=== PATIENT | female | born 1935 | race Caucasian/White ===

== ENCOUNTER 2016-12-23 12:32 | Inpatient (IN) | payer MEDICARE, BC ==
[~2016-12-23] VITALS: Ht 142.2 cm; Wt 39.0 kg
--- NOTE | 2016-12-23 12:42 | Emergency Room Report ---
History of Present Illness General Chief Complaint: Dyspnea/Respdistress Source: Patient, EMS Present Illness HPI 81 YOF former smoker with known COPD with 10 days productive cough, rhinorrhea, myalgias, headaches. Completed 7 days of doxy and [address] Kidd. PMD requesting eval/admission at [facility]. I called Dr Kidd's office, he does not have admission priveleges here. Patient endorsing rhinorrhea, productive cough, wheezing. Given albuterol by EMS en route. Denies chest pain, Abd pain, headache, urinary complaints. Allergies: Coded Allergies: No Known Allergies (Unverified , 12/23/16) Patient History Past Medical History: other - COPD, breast cancer, hypotyroidusm Past Surgical History: none Pertinent Family History: none Social History: Reports: smoking Now: No Immunizations: UTD Reviewed Nursing Documentation: PMH: Agreed, PSxH: Agreed Nursing Documentation-PMH Hx COPD: Yes Hx Diabetes: No - Neuropathy Hx Cancer: Yes - Breast Review of Systems All Other Systems: negative except mentioned in HPI Physical Exam Vital Signs Date Time Temp Pulse Resp B/P Pulse Ox O2 Delivery O2 Flow Rate FiO2 12/23/16 12:25 98.2 120 24 150/84 94 Venturi Mask [id number] EP Interpretation: reviewed, abnormal General Appearance: normal inspection, well appearing, alert, GCS 15, non-toxic , mild distress, cachetic Head: normocephalic, atraumatic Eyes: bilateral eye EOMI, bilateral eye PERRL ENT: normal ENT inspection, hearing grossly normal, normal voice Neck: normal inspection, full range of motion, supple, no bony tend Respiratory: normal inspection, respiratory distress, accessory muscle use, speaking full sentences, wheezing Cardiovascular #1: regular rate, rhythm, no edema Gastrointestinal: normal inspection, normal bowel sounds, non tender, soft, no guarding, no hernia Genitourinary: no CVA tenderness Musculoskeletal: normal inspection, back normal, normal range of motion, Oj' s Sign negative Neurologic: normal inspection, alert, oriented x3, responsive, raw mill operator III-XII nml as tested, motor strength/tone normal, speech normal Psychiatric: normal inspection, judgement/insight normal, mood/affect normal Skin: normal inspection, normal color, no rash Lymphatic: normal inspection Medical Decision Making Medicare Attestation I Petra Dukes MD hereby attest that the medical record entry for date of service, 09/21/16 accurately reflects signatures/notations that I made in my capacity as MD when I treated/diagnosed the above listed Medicare beneficiary. I attest that this information is true, accurate and complete to the best of my knowledge. I understand that any falsification, omission, or concealment of material fact may subject me to administrative, civil, or criminal liability. This patient warrants hospital admission for extreme of age and has a condition that cannot be treated as outpatient Diagnostic Impression: Primary Impression: COPD exacerbation ER Course Labs: No leuks. H&H stable. Troponin 0. BNP elevated CXR: No obvious PNA or pulm congestion Empiric Azithro given along with Bipap, duonebs, steroids with improvement Patient later found to have low grade fever so Tylenol given, Blood Cx sent and Rocephin added Doubt acute CHF despite elevated BNP as patient does not have CHF history, lung sounds were reduced/wheezing, improved aeration with BIPAP, and patient was actually weaned from BIPAP prior to admission to floor Endorsed to Dr Liang for [facility] admission at 151pm EKG Diagnostic Results Rate: tachycardiac Rhythm: NSR ST Segments: no acute changes Rhythm Strip Diag. Results EP Interpretation: yes Rate: 112 Rhythm: no PVC's, no ectopy Chest X-Ray Diagnostic Results EP Interpretation: Yes Findings: no consolidation, no effusion, no pneumothorax, no acute cardiopulmonary disease Number of Views: 1 Last Vital Signs Date Time Temp Pulse Resp B/P Pulse Ox O2 Delivery O2 Flow Rate FiO2 12/23/16 12:25 98.2 120 24 150/84 94 Venturi Mask Status: unchanged Disposition: ADMITTED INPATIENT Condition: Serious PETRA DUKES M.D. Dec 23, 2016 12:42
[2016-12-23] MEDS ORDERED: Albuterol ud Inhalation HHN ONE (12:45)
[2016-12-23] MEDS ORDERED: Azithromycin 500 MG in NS 275 ML IV ONE (12:45)
[2016-12-23] MEDS ORDERED: Solu-MEDROL 125mg Inj IVP ONE (12:45)
[2016-12-23] MEDS: Ipratropium 0.02% Inh Soln 2.5ml UD HHN SCH ×3 (13:00→13:15)
[2016-12-23 13:15] VITALS: BP 129/82
[2016-12-23] MEDS ORDERED: Azithromycin Inj IV ONE (13:30)
--- NOTE | 2016-12-23 13:33 | Diagnostic Imaging Report ---
Indication: Dyspnea Comparison: None A single view chest radiograph was obtained. Findings: There are linear densities at the right lung base. Findings is older basal scarring or atelectasis. Heart is normal in size. Bones are osteopenic. Impression: Suspect is scarring versus atelectasis right lung base
[2016-12-23 13:46] VITALS: BP 135/87
[2016-12-23 13:54] LABS: BASOPHILS % (AUTO) 0.8 % (0.0-2.0); EOSINOPHILS % (AUTO) 0.2 % (0.0-3.0); LYMPHOCYTES % (AUTO) 14.5 % (20.0-45.0); MEAN CORPUSCULAR HEMOGLOBIN 31.8 PG (27.0-31.0); MEAN CORPUSCULAR HGB CONC 33.3 G/DL (32.0-36.0); MEAN CORPUSCULAR VOLUME 95 FL (80-99); MONOCYTES % (AUTO) 9.4 % (1.0-10.0); NEUTROPHILS % (AUTO) 75.1 % (45.0-75.0); PLATELET COUNT 341 K/UL (150-450); RED BLOOD COUNT 4.99 M/UL (4.20-5.40); RED CELL DISTRIBUTION WIDTH 12.4 % (11.6-14.8); WHITE BLOOD COUNT 10.3 K/UL (4.8-10.8)
[2016-12-23 13:59] LABS: ABG ALLEN TEST POSITIVE; ABG BASE EXCESS 0.7; ABG PCO2 32.5 mmHg (35.0-45.0)
[2016-12-23] MEDS ORDERED: cefTRIAXone 2 GM in NS 110 ML IVPB ONE (14:00)
[2016-12-23 14:49] LABS: TROPONIN I < 0.30 ng/mL (<=0.30)
[2016-12-23] MEDS ORDERED: Aspirin EC 81mg tab ORAL SCH (15:00)
[2016-12-23] MEDS ORDERED: DULoxetine 30mg cap ORAL ONE (15:00)
[2016-12-23] MEDS ORDERED: DuoNeb 0.5-3(2.5)mg/3ml neb HHN SCH (15:00)
[2016-12-23] MEDS ORDERED: Oxybutynin 5mg tab ORAL SCH (15:00)
[2016-12-23] MEDS ORDERED: Solu-MEDROL 125mg Inj IVP SCH (15:00)
[2016-12-23 15:01] LABS: ALANINE AMINOTRANSFERASE 12 U/L (3-33); ALBUMIN/GLOBULIN RATIO 0.9 (1.0-2.7); ANION GAP 18 (5-15); ASPARTATE AMINO TRANSFERASE 21 U/L (5-40); CARBON DIOXIDE 24 mEQ/L (20-30); CHLORIDE 81 mEQ/L (98-107); CREATININE 0.5 mg/dL (0.5-0.9); HEMOLYSIS 35; POTASSIUM 3.6 mEQ/L (3.4-4.9); SODIUM 123 mEQ/L (135-145); TOTAL PROTEIN 6.4 g/dL (6.6-8.7)
[2016-12-23 15:21] LABS: CKMB 8.8 ng/mL (< 3.8)
[2016-12-23 15:38] VITALS: BP 135/80
[2016-12-23] MEDS ORDERED: VIBRAMYCIN100 MG ORAL (16:12)
[2016-12-23] MEDS ORDERED: ADVAIR 250-501 EACH INH (16:12)
[2016-12-23] MEDS ORDERED: BENZONATATE200 MG ORAL (16:12)
[2016-12-23] MEDS ORDERED: SPIRIVA18 MCG INH (16:12)
[2016-12-23] MEDS ORDERED: GABAPENTIN400 MG ORAL (16:12)
[2016-12-23] MEDS ORDERED: GABAPENTIN600 MG ORAL (16:12)
[2016-12-23] MEDS ORDERED: OXYBUTYNIN CHLO10 MG PO (16:12)
[2016-12-23] MEDS ORDERED: GUAIFENESIN-CO118 M1 ORAL (16:12)
[2016-12-23] MEDS ORDERED: ASPIRIN81 MG ORAL (16:15)
[2016-12-23] MEDS ORDERED: PREDNISONE20 MG ORAL (16:15)
[2016-12-23] MEDS ORDERED: CELEBREX100 MG ORAL (16:15)
[2016-12-23] MEDS ORDERED: ALBUTEROL SULF8.5 GM INH (16:15)
[2016-12-23] MEDS ORDERED: RAPAFLO-PATIENT'1 EA PO (16:15)
[2016-12-23] MEDS ORDERED: LEVOTHYROXINE125 MCG ORAL (16:15)
[2016-12-23] MEDS ORDERED: [UNRECOGNIZED DRUG - OTHER] BOTH EYES (16:15)
[2016-12-23] MEDS ORDERED: CYMBALTA30 MG ORAL (16:15)
[2016-12-23 19:00] VITALS: BP 164/88
[2016-12-23] MEDS ORDERED: Levofloxacin 500mg tab ORAL ONE (19:00)
[2016-12-23] MEDS: DuoNeb 0.5-3(2.5)mg/3ml neb HHN SCH ×2 (19:09→22:48)
[2016-12-23] MEDS: Oxybutynin 5mg tab ORAL SCH (21:09)
[2016-12-23] MEDS: Heparin 5000 units/ml inj SUBQ SCH (21:10)
--- NOTE | 2016-12-23 21:28 | History and Physical Report ---
DATE OF ADMISSION: 12/23/2016 CHIEF COMPLAINT: COPD exacerbation. HISTORY OF PRESENT ILLNESS: The patient is an 81-year-old female. She has a history of COPD. She presented from home with complaints of a week of progressive shortness of breath. She has been followed by her outpatient prison teacher, who recently placed the patient on steroids. She has also been receiving oral antibiotic therapy, but has had progressive shortness of breath and wheezing. She has not been using her inhaler. She presented to the emergency room where she was initially in acute respiratory distress. She was placed on BiPAP and given a dose of intravenous Solu-Medrol and breathing treatments. She has since improved, but remains short of breath. She has just been taken off BiPAP. She has a low-grade fever. She denies any ill contacts. She has had no recent travel and she has had a mild productive cough. She denies any chest pain. PAST MEDICAL HISTORY: As above. PAST SURGICAL HISTORY: History of a breast biopsy. MEDICATIONS: Current medications reconciled and reviewed. ALLERGIES: None. SOCIAL HISTORY: The patient is a 45 pack-year history of smoking. Denies any alcohol or drugs. FAMILY HISTORY: None. REVIEW OF SYSTEMS: General: Positive fevers and chills, but no night sweats. HEENT: No headaches or visual changes. Cardiopulmonary: Positive shortness of breath, cough, and congestion. Positive wheezing. Gastrointestinal: No nausea or vomiting. Genitourinary: No urgency or frequency. Musculoskeletal: No joint pain or swelling. Neurologic: No evidence of seizures. PHYSICAL EXAMINATION: GENERAL: The patient is a well-developed thin female. She is awake, alert, and oriented x4. VITAL SIGNS: Temperature was 100.5 degrees, pulse 114, respirations 18, blood pressure 129/82 and the patient is saturating 95% on BiPAP. NECK: Supple. There is no jugular vein distention. HEART: Regular rate and rhythm. LUNGS: Significant for diminished breath sounds with scattered wheezes. ABDOMEN: Soft, nontender, and nondistended. EXTREMITIES: Without clubbing, cyanosis, or edema. LABORATORY AND DIAGNOSTIC DATA: The CMP is currently pending. The white count was 10, hemoglobin 15, hematocrit 47 and platelets 341,000. ABG showed a pH of 7.47, pCO2 32, pO2 137, bicarbonate 23, and O2 saturation 98%. Chest x-ray shows right basilar atelectasis. ASSESSMENT: This is a pleasant female with history of chronic obstructive pulmonary disease, admitted with chronic obstructive pulmonary disease exacerbation. 1. Chronic obstructive pulmonary disease exacerbation. 2. Pneumonia versus bronchitis. 3. Hypoxemia. 4. Respiratory failure. PLAN: Continue BiPAP as needed, respiratory treatments and IV steroids and broad-spectrum antibiotic therapy. Follow up cultures. DVT and stress ulcer prophylaxis. The patient to be continued on her outpatient medications. Code Status was discussed with the patient and she wishes to be a Full Code. Azar Liang M.D. DR: VIRIDIANA JOB#: [id number] CC:
[2016-12-23] MEDS: Solu-MEDROL 125mg Inj IVP SCH (23:16)
[2016-12-24] VITALS: BP 113/65
--- NOTE | 2016-12-24 02:18 | Consultation ---
DATE OF CONSULTATION: 12/23/2016 CONSULTING PHYSICIAN: Danilo Chau M.D. REFERRING PHYSICIAN: Azar Liang M.D. REASON FOR CONSULTATION: COPD and shortness of breath. HISTORY OF PRESENT ILLNESS: The patient is an 81-year-old female who is a former smoker. No history of COPD. The patient is seen and evaluated in the emergency room and noted to have COPD exacerbation. The patient currently had this treatment completed. Doxycycline and prednisone did not improve. The patient is under the care of Dr. Gomez. The patient does admit to some viral syndrome as well as cough and wheezing. She was given albuterol by the EMS. The patient had been admitted for the above. The patient has no improvement overall. Emergency room records revealed that chest x-ray showed no pneumonia. The patient was given antibiotics and IV steroids with some improvement overall. PAST MEDICAL HISTORY: The patient's past medical history is notable for COPD, breast cancer, and hypothyroidism. MEDICATIONS: Reviewed. ALLERGIES: Reviewed. SOCIAL HISTORY: The patient is apparent nonsmoker and nondrinker. The patient is retired, unemployed at present. FAMILY HISTORY: Otherwise negative. REVIEW OF SYSTEMS: Otherwise negative exception is above. PHYSICAL EXAMINATION: GENERAL: A well developed female, comfortable. VITAL SIGNS: Temperature 104, respiration 16, blood pressure 114/65, heart rate 73. HEENT: Fairly negative. NECK: Supple. LUNGS: Scattered wheezing. Moderate air entry. CARDIAC: S1 and S2. Regular, rate, and rhythm. No murmurs, rubs,or gallops. ABDOMEN: Soft and nontender. No distention. EXTREMITIES: No cyanosis or clubbing. No edema. NEUROLOGIC: Grossly nonfocal. Alert and oriented x3. LABORATORY DATA: Laboratory data reviewed in details. The patient's chest x-ray shows no pneumonia. EKG, normal sinus rhythm with the exception of telemetry showing sinus tachycardia. White cell count of 10, hematocrit 47, and platelets of 341,000. Chemistry - Sodium 123, BUN 70, and creatinine 0.5. BNP is 3556 and albumin 3.1. IMPRESSION: 1. COPD with acute exacerbation. 2. Shortness of breath. 3. Respiratory insufficiency. 4. Profound hyponatremia. 5. Depression. RECOMMENDATIONS: Admit IV Solu-Medrol, nebulizer therapy. Oxygen therapy. Subcutaneous heparin. Empiric antibiotics. Respiratory care. Followup care. recommend outpatient pulmonary function testing authorization. We will recommend combination of therapy with long acting anticholinergic agent as well as long acting bronchodilator, steroids, and inhaled steroids. Danilo Chau M.D. DR: YULIYA JOB#: [id number] CC: KASH
[2016-12-24] MEDS: DuoNeb 0.5-3(2.5)mg/3ml neb HHN SCH ×6 (03:18→23:08)
[2016-12-24 04:00] VITALS: BP 133/77
[2016-12-24] MEDS: Solu-MEDROL 125mg Inj IVP SCH ×3 (05:37→21:25)
[2016-12-24 08:00] VITALS: BP 125/69
[2016-12-24] MEDS: Oxybutynin 5mg tab ORAL SCH ×2 (08:47→17:12)
[2016-12-24] MEDS: DULoxetine 30mg cap ORAL SCH (08:47)
[2016-12-24] MEDS: Aspirin EC 81mg tab ORAL SCH (08:47)
[2016-12-24] MEDS: Heparin 5000 units/ml inj SUBQ SCH ×2 (08:51→21:27)
--- NOTE | 2016-12-24 08:52 | Pulmonology Progress Note ---
Assessment/Plan Assessment/Plan IMPRESSION: 1. COPD with acute exacerbation. 2. Shortness of breath. 3. Respiratory insufficiency. 4. Profound hyponatremia. 5. Depression. PLAN same rx continue same IV solumedrol respiratory care oxygen therapy assess home needs lives alone and very fragil impression, plan, and exam edited and reviewed in detail care discussed with RN Subjective Allergies: Coded Allergies: No Known Allergies (Unverified , 12/23/16) Subjective still congested and sob notes that she does have COPD not oxygen dependent Objective Last 24 Hour Vital Signs Date Time Temp Pulse Resp B/P Pulse Ox O2 Delivery O2 Flow Rate FiO2 12/24/16 07:28 95 18 98 Nasal Cannula 2.0 28 12/24/16 07:18 28 12/24/16 07:18 98 Nasal Cannula 2.0 28 12/24/16 07:18 Nasal Cannula 2.0 28 12/24/16 07:18 98 16 98 Nasal Cannula 2.0 28 12/24/16 04:00 84 12/24/16 04:00 97.4 84 20 133/77 100 Nasal Cannula 2.0 12/24/16 04:00 90 12/24/16 03:29 100 18 98 Nasal Cannula 2.0 28 12/24/16 03:19 28 12/24/16 03:18 98 16 97 Nasal Cannula 2.0 28 12/24/16 00:15 97.4 12/24/16 00:00 97.4 96 20 113/65 95 Nasal Cannula 2.0 12/24/16 00:00 99 12/23/16 22:59 98 18 99 Nasal Cannula 2.0 28 12/23/16 22:49 99 18 98 Nasal Cannula 2.0 28 12/23/16 22:49 28 12/23/16 20:00 104 12/23/16 19:21 98 20 99 Nasal Cannula 2.0 28 12/23/16 19:13 97 Nasal Cannula 2.0 28 12/23/16 19:13 Nasal Cannula 2.0 28 12/23/16 19:11 28 12/23/16 19:11 100 18 97 Nasal Cannula 2.0 28 12/23/16 19:00 96.8 100 20 164/88 96 Nasal Cannula 2.0 12/23/16 17:12 104 16 114/65 94 Nasal Cannula 3.0 12/23/16 16:27 97.9 12/23/16 15:38 98.4 106 18 135/80 98 4.0 12/23/16 14:20 15.0 30 12/23/16 13:46 100.5 104 19 135/87 99 40 12/23/16 13:30 40 12/23/16 13:20 102 20 100 Facial 15.0 40 12/23/16 13:15 114 18 129/82 100 Bi-pap 40 12/23/16 13:12 101 20 95 Bi-pap 15.0 40 12/23/16 13:02 105 18 87 Bi-pap 12/23/16 13:02 105 18 Bi-pap 15.0 40 12/23/16 13:02 40 12/23/16 12:40 122 20 Simple Mask 94 12/23/16 12:25 98.2 120 24 150/84 94 Venturi Mask Intake and Output 12/23/16 12/24/16 19:00 07:00 Intake Total 375 ml 120 ml Balance 375 ml 120 ml Intake Oral 100 ml 120 ml IV Total 275 ml # Voids 3 Objective GENERAL: A well developed female, comfortable. but persistently coughing HEENT: Fairly negative. NECK: Supple. LUNGS: Scattered wheezing and rhonchi diffuse. Moderate air entry. CARDIAC: S1 and S2. Regular, rate, and rhythm. No murmurs, rubs,or gallops. ABDOMEN: Soft and nontender. No distention. EXTREMITIES: No cyanosis or clubbing. No edema. NEUROLOGIC: Grossly nonfocal. Alert and oriented x3. Laboratory Tests 12/23/16 12:42: Arterial Blood pH 7.477H, Arterial Blood Partial Pressure CO2 32.5L, Arterial Blood Partial Pressure O2 137.1H, Arterial Blood HCO3 23.5, Arterial Blood Oxygen Saturation 98.7H, Arterial Blood Base Excess 0.7, Armando Test Positive 12/23/16 13:25: White Blood Count 10.3, Red Blood Count 4.99, Hemoglobin 15.9, Hematocrit 47.5H , Mean Corpuscular Volume 95, Mean Corpuscular Hemoglobin 31.8H, Mean Corpuscular Hemoglobin Concent 33.3, Red Cell Distribution Width 12.4, Platelet Count 341, Mean Platelet Volume 6.0L, Neutrophils (%) (Auto) 75.1H, Lymphocytes (%) (Auto) 14.5L, Monocytes (%) (Auto) 9.4, Eosinophils (%) (Auto) 0.2, Basophils (%) (Auto) 0.8 12/23/16 13:58: Sodium Level 123L, Potassium Level 3.6, Chloride Level 81L, Carbon Dioxide Level 24, Anion Gap 18H, Blood Urea Nitrogen 7, Creatinine 0.5, Estimat Glomerular Filtration Rate , Glucose Level 129H, Calcium Level 9.0, Total Bilirubin 0.3, Aspartate Amino Transf (AST/SGOT) 21, Alanine Aminotransferase ( ALT/SGPT) 12, Alkaline Phosphatase 82, Total Creatine Kinase 62, Creatine Kinase MB 8.8H, Creatine Kinase MB Relative Index 14.1, Troponin I < 0.30, Pro-B -Type Natriuretic Peptide 3556H, Total Protein 6.4L, Albumin 3.1L, Globulin 3.3 , Albumin/Globulin Ratio 0.9L Current Medications Medications (Trade) Dose Ordered Sig/Ha Route PRN Reason Start Time Stop Time Status Last Admin Dose Admin Albuterol/ Ipratropium (DuoNeb 0.5-3(2.5)mg/3ml) 3 ml Q4HRT HHN 12/23/16 19:00 12/28/16 18:59 12/24/16 07:18 Aspirin (Ecotrin) 81 mg DAILY ORAL 12/24/16 09:00 01/23/17 08:59 Ceftriaxone Sodium/Dextrose (Rocephin/D5W) 55 ml @ 110 mls/hr Q24H IVPB 12/24/16 14:00 12/31/16 13:59 Duloxetine HCl (Cymbalta) 30 mg DAILY ORAL 12/24/16 09:00 01/23/17 08:59 Gabapentin (Neurontin) 400 mg THREE TIMES A DAY ORAL 12/23/16 22:00 01/22/17 21:59 12/23/16 23:16 Heparin Sodium (Porcine) (Heparin 5000 units/ml) 5,000 units EVERY 12 HOURS SUBQ 12/23/16 21:00 01/22/17 20:59 12/23/16 21:10 Levofloxacin (Levaquin) 250 mg Q24H ORAL 12/24/16 18:00 12/31/16 17:59 Methylprednisolone Sodium Succinate (Solu-MEDROL) 60 mg EVERY 8 HOURS IVP 12/23/16 22:00 01/22/17 21:59 12/24/16 05:37 Oxybutynin Chloride (Ditropan) 5 mg BID ORAL 12/23/16 21:00 01/22/17 20:59 12/23/16 21:09 Pantoprazole 40 mg 40 mg DAILY ORAL 12/24/16 09:00 01/23/17 08:59 LESLYE PAZ Dec 24, 2016 08:52
[2016-12-24] MEDS ORDERED: Levofloxacin 500mg tab ORAL SCH (09:00)
[2016-12-24] MEDS: Advair 250/50 Inhaler - 14 dose INH SCH ×2 (10:34→19:09)
[2016-12-24 12:00] VITALS: BP 137/68
[2016-12-24] MEDS: cefTRIAXone 1gm/D5W 55ml IVPB SCH ×2 (14:26)
--- NOTE | 2016-12-24 14:29 | General Progress Note ---
Assessment/Plan Problem List: (1) COPD (chronic obstructive pulmonary disease) ICD Codes: J44.9 - Chronic obstructive pulmonary disease, unspecified SNOMED: 65664125 (2) Respiratory failure ICD Codes: J96.90 - Respiratory failure, unspecified, unspecified whether with hypoxia or hypercapnia SNOMED: 028767778 Status: stable Assessment/Plan iv steroids resp rx dvt and stress ulcer prophyalxis o2 remains tenuous Subjective ROS Limited/Unobtainable: No Constitutional: Reports: malaise, weakness HEENT: Reports: no symptoms Cardiovascular: Reports: no symptoms Respiratory: Reports: cough, shortness of breath, wheezing Gastrointestinal/Abdominal: Reports: no symptoms Genitourinary: Reports: no symptoms Neurologic/Psychiatric: Reports: no symptoms Endocrine: Reports: no symptoms Hematologic/Lymphatic: Reports: no symptoms Allergies: Coded Allergies: No Known Allergies (Unverified , 12/23/16) All Systems: reviewed and negative except above Subjective no events. still sob. off bipap. denies chest pain pulm input appreciated. Objective Last 24 Hour Vital Signs Date Time Temp Pulse Resp B/P Pulse Ox O2 Delivery O2 Flow Rate FiO2 12/24/16 12:00 96.3 100 20 137/68 98 Nasal Cannula 2.5 12/24/16 10:45 98 18 99 Nasal Cannula 2.0 28 12/24/16 10:35 101 16 97 Nasal Cannula 2.0 28 12/24/16 10:35 28 12/24/16 08:00 96.3 101 20 125/69 95 Nasal Cannula 2.5 12/24/16 08:00 101 12/24/16 07:28 95 18 98 Nasal Cannula 2.0 28 12/24/16 07:18 28 12/24/16 07:18 98 Nasal Cannula 2.0 28 12/24/16 07:18 Nasal Cannula 2.0 28 12/24/16 07:18 98 16 98 Nasal Cannula 2.0 28 12/24/16 04:00 84 12/24/16 04:00 97.4 84 20 133/77 100 Nasal Cannula 2.0 12/24/16 04:00 90 12/24/16 03:29 100 18 98 Nasal Cannula 2.0 28 12/24/16 03:19 28 12/24/16 03:18 98 16 97 Nasal Cannula 2.0 28 12/24/16 00:15 97.4 12/24/16 00:00 97.4 96 20 113/65 95 Nasal Cannula 2.0 12/24/16 00:00 99 12/23/16 22:59 98 18 99 Nasal Cannula 2.0 28 12/23/16 22:49 99 18 98 Nasal Cannula 2.0 28 12/23/16 22:49 28 12/23/16 20:00 104 12/23/16 19:21 98 20 99 Nasal Cannula 2.0 28 12/23/16 19:13 97 Nasal Cannula 2.0 28 12/23/16 19:13 Nasal Cannula 2.0 28 12/23/16 19:11 28 12/23/16 19:11 100 18 97 Nasal Cannula 2.0 28 12/23/16 19:00 96.8 100 20 164/88 96 Nasal Cannula 2.0 12/23/16 17:12 104 16 114/65 94 Nasal Cannula 3.0 12/23/16 16:27 97.9 12/23/16 15:38 98.4 106 18 135/80 98 4.0 Intake and Output 12/23/16 12/24/16 19:00 07:00 Intake Total 375 ml 120 ml Balance 375 ml 120 ml Intake Oral 100 ml 120 ml IV Total 275 ml # Voids 3 Height (Feet): 4 Height (Inches): 8.00 Weight (Pounds): 86 General Appearance: WD/WN, alert Neck: supple Cardiovascular: normal peripheral pulses, normal rate, regular rhythm Respiratory/Chest: decreased breath sounds, expiratory wheezing Abdomen: normal bowel sounds, non tender, soft, no organomegaly Edema: no edema noted Arm (L), no edema noted Arm (R), no edema noted Leg (L), no edema noted Leg (R), no edema noted Pedal (L), no edema noted Pedal (R), no edema noted Generalized ROSS BROCK Dec 24, 2016 14:29
[2016-12-24 15:56] VITALS: BP 131/76
[2016-12-24 20:00] VITALS: BP 115/68
[2016-12-24] MEDS: Sodium Chloride 1gm Tab ORAL SCH (20:46)
[2016-12-25] VITALS: BP 123/78
[2016-12-25] MEDS: DuoNeb 0.5-3(2.5)mg/3ml neb HHN SCH ×6 (03:44→23:05)
[2016-12-25 04:00] VITALS: BP 128/72
[2016-12-25] MEDS: Solu-MEDROL 125mg Inj IVP SCH ×3 (06:03→21:15)
[2016-12-25 06:18] LABS: MEAN CORPUSCULAR HEMOGLOBIN 31.6 PG (27.0-31.0); MEAN CORPUSCULAR HGB CONC 33.5 G/DL (32.0-36.0); MEAN CORPUSCULAR VOLUME 94 FL (80-99); MEAN PLATELET VOLUME 6.1 FL (6.5-10.1); PLATELET COUNT 351 K/UL (150-450); RED BLOOD COUNT 4.32 M/UL (4.20-5.40); WHITE BLOOD COUNT 12.7 K/UL (4.8-10.8)
[2016-12-25 06:55] LABS: ALANINE AMINOTRANSFERASE 14 U/L (3-33); ANION GAP 18 (5-15); ASPARTATE AMINO TRANSFERASE 22 U/L (5-40); CARBON DIOXIDE 24 mEQ/L (20-30); CHLORIDE 79 mEQ/L (98-107); CREATININE 0.4 mg/dL (0.5-0.9); HEMOLYSIS 26; POTASSIUM 4.2 mEQ/L (3.4-4.9); SODIUM 121 mEQ/L (135-145); TOTAL PROTEIN 6.2 g/dL (6.6-8.7)
[2016-12-25 08:00] VITALS: BP 153/72
--- NOTE | 2016-12-25 08:49 | Pulmonology Progress Note ---
Assessment/Plan Assessment/Plan IMPRESSION: 1. COPD with acute exacerbation. 2. Shortness of breath. 3. Respiratory insufficiency. 4. Profound hyponatremia. 5. Depression. PLAN same rx continue same IV solumedrol as is pending improvement respiratory care oxygen therapy assess home needs and dc planning lives alone and very fragile not ready for dc plan yet impression, plan, and exam edited and reviewed in detail care discussed with RN Subjective Allergies: Coded Allergies: No Known Allergies (Unverified , 12/23/16) Subjective still congested and sob as prior on oxygen awake Objective Last 24 Hour Vital Signs Date Time Temp Pulse Resp B/P Pulse Ox O2 Delivery O2 Flow Rate FiO2 12/25/16 08:00 97.5 107 18 153/72 95 Nasal Cannula 2.0 12/25/16 07:16 95 18 98 Nasal Cannula 2.0 12/25/16 07:06 28 12/25/16 07:06 Nasal Cannula 2.0 28 12/25/16 07:06 96 Nasal Cannula 2.0 28 12/25/16 07:06 95 16 96 Nasal Cannula 2.0 28 12/25/16 04:00 105 12/25/16 04:00 97.4 103 20 128/72 94 Nasal Cannula 2.0 12/25/16 03:48 102 18 100 Nasal Cannula 2.0 12/25/16 03:44 104 18 97 Nasal Cannula 2.0 12/25/16 00:00 97.7 111 18 123/78 93 Nasal Cannula 2.0 12/25/16 00:00 108 12/24/16 23:17 110 18 99 Nasal Cannula 2.0 12/24/16 23:07 113 18 93 Nasal Cannula 2.0 12/24/16 20:00 118 12/24/16 20:00 97.9 118 17 115/68 98 Nasal Cannula 2.0 12/24/16 19:14 106 18 99 Nasal Cannula 2.0 12/24/16 19:10 97.0 12/24/16 19:07 109 18 96 Nasal Cannula 2.0 12/24/16 19:06 Nasal Cannula 2.0 28 12/24/16 19:06 96 Nasal Cannula 2.0 28 12/24/16 16:00 102 18 100 Nasal Cannula 2.0 12/24/16 16:00 114 12/24/16 15:56 97.7 106 20 131/76 94 Nasal Cannula 2.0 12/24/16 15:50 104 18 97 Nasal Cannula 2.0 12/24/16 12:00 96.3 100 20 137/68 98 Nasal Cannula 2.5 12/24/16 10:45 98 18 99 Nasal Cannula 2.0 28 12/24/16 10:35 101 16 97 Nasal Cannula 2.0 28 12/24/16 10:35 28 Intake and Output 12/24/16 12/25/16 19:00 07:00 Intake Total 450 ml 300 ml Balance 450 ml 300 ml Intake Oral 450 ml 300 ml # Voids 2 3 Objective GENERAL: A well developed female, comfortable. but persistently coughing NAD HEENT: Fairly negative. EOMI NECK: Supple. LUNGS: Scattered wheezing and rhonchi diffuse with minimal change. Moderate air entry. CARDIAC: S1 and S2. Regular, rate, and rhythm. No murmurs, rubs,or gallops. ABDOMEN: Soft and nontender. No distention. no HSM EXTREMITIES: No cyanosis or clubbing. No edema. NEUROLOGIC: Grossly nonfocal. Alert and oriented x3. Microbiology Date/Time Source Procedure Growth Status 12/23/16 13:55 Blood Blood Culture - Preliminary NO GROWTH AFTER 24 HOURS Resulted 12/23/16 13:25 Blood Blood Culture - Preliminary NO GROWTH AFTER 24 HOURS Resulted Laboratory Tests 12/25/16 03:50: White Blood Count 12.7H, Red Blood Count 4.32, Hemoglobin 13.7, Hematocrit 40.8 , Mean Corpuscular Volume 94, Mean Corpuscular Hemoglobin 31.6H, Mean Corpuscular Hemoglobin Concent 33.5, Red Cell Distribution Width 12.0, Platelet Count 351, Mean Platelet Volume 6.1L, Neutrophils (%) (Auto) , Lymphocytes (%) ( Auto) , Monocytes (%) (Auto) , Eosinophils (%) (Auto) , Basophils (%) (Auto) , Sodium Level 121L, Potassium Level 4.2, Chloride Level 79L, Carbon Dioxide Level 24, Anion Gap 18H, Blood Urea Nitrogen 14, Creatinine 0.4L, Estimat Glomerular Filtration Rate , Glucose Level 182H, Calcium Level 9.0, Total Bilirubin < 0.2, Aspartate Amino Transf (AST/SGOT) 22, Alanine Aminotransferase (ALT/SGPT) 14, Alkaline Phosphatase 83, Total Protein 6.2L, Albumin 3.2L, Globulin 3.0, Albumin/Globulin Ratio 1.0 Current Medications Medications (Trade) Dose Ordered Sig/Ha Route PRN Reason Start Time Stop Time Status Last Admin Dose Admin Albuterol/ Ipratropium (DuoNeb 0.5-3(2.5)mg/3ml) 3 ml Q4HRT HHN 12/23/16 19:00 12/28/16 18:59 12/25/16 07:06 Aspirin (Ecotrin) 81 mg DAILY ORAL 12/24/16 09:00 01/23/17 08:59 12/24/16 08:47 Ceftriaxone Sodium/Dextrose (Rocephin/D5W) 55 ml @ 110 mls/hr Q24H IVPB 12/24/16 14:00 12/31/16 13:59 12/24/16 14:26 Duloxetine HCl (Cymbalta) 30 mg DAILY ORAL 12/24/16 09:00 01/23/17 08:59 12/24/16 08:47 Gabapentin (Neurontin) 400 mg THREE TIMES A DAY ORAL 12/23/16 22:00 01/22/17 21:59 12/24/16 18:11 Heparin Sodium (Porcine) (Heparin 5000 units/ml) 5,000 units EVERY 12 HOURS SUBQ 12/23/16 21:00 01/22/17 20:59 12/24/16 21:27 Levofloxacin (Levaquin) 250 mg Q24H ORAL 12/24/16 18:00 12/31/16 17:59 12/24/16 17:12 Methylprednisolone Sodium Succinate (Solu-MEDROL) 60 mg EVERY 8 HOURS IVP 12/23/16 22:00 01/22/17 21:59 12/25/16 06:03 Oxybutynin Chloride (Ditropan) 5 mg BID ORAL 12/23/16 21:00 01/22/17 20:59 12/24/16 17:12 Pantoprazole 40 mg 40 mg DAILY ORAL 12/24/16 09:00 01/23/17 08:59 12/24/16 08:49 Salmeterol Xinafoate/ Fluticasone (Advair 250/50 Diskus) 1 puffs BID INH 12/24/16 10:00 01/23/17 09:59 12/24/16 19:09 Sodium Chloride (NaCl) 1 gm BID ORAL 12/24/16 19:00 01/23/17 18:59 12/24/16 20:46 LESLYE PAZ Dec 25, 2016 08:49
[2016-12-25] MEDS: Advair 250/50 Inhaler - 14 dose INH SCH ×2 (09:16→21:25)
[2016-12-25] MEDS: Aspirin EC 81mg tab ORAL SCH (09:20)
[2016-12-25] MEDS: DULoxetine 30mg cap ORAL SCH (09:21)
[2016-12-25] MEDS: Oxybutynin 5mg tab ORAL SCH ×2 (09:21→18:23)
[2016-12-25] MEDS: Sodium Chloride 1gm Tab ORAL SCH ×2 (09:21→18:23)
[2016-12-25] MEDS: Heparin 5000 units/ml inj SUBQ SCH ×2 (09:23→21:16)
[2016-12-25 12:00] VITALS: BP 147/79
[2016-12-25] MEDS: cefTRIAXone 1gm/D5W 55ml IVPB SCH ×2 (13:19)
[2016-12-25 16:00] VITALS: BP 142/78
[2016-12-25 20:00] VITALS: BP 105/62
--- NOTE | 2016-12-25 20:27 | General Progress Note ---
Assessment/Plan Problem List: (1) COPD (chronic obstructive pulmonary disease) ICD Codes: J44.9 - Chronic obstructive pulmonary disease, unspecified SNOMED: 81464258 (2) Respiratory failure ICD Codes: J96.90 - Respiratory failure, unspecified, unspecified whether with hypoxia or hypercapnia SNOMED: 199715919 Status: stable, progressing Assessment/Plan iv steroids- no change resp rx dvt and stress ulcer prophyalxis o2 increase nacl water restrict remains tenuous Subjective ROS Limited/Unobtainable: No Constitutional: Reports: malaise, weakness HEENT: Reports: no symptoms Cardiovascular: Reports: no symptoms Respiratory: Reports: cough, shortness of breath, sputum Gastrointestinal/Abdominal: Reports: no symptoms Genitourinary: Reports: no symptoms Neurologic/Psychiatric: Reports: no symptoms Endocrine: Reports: no symptoms Hematologic/Lymphatic: Reports: no symptoms Allergies: Coded Allergies: No Known Allergies (Unverified , 12/23/16) All Systems: reviewed and negative except above Subjective no events. still sob. off bipap. on steroids and iv abx. on resp rx. minimal improvement so far Objective Last 24 Hour Vital Signs Date Time Temp Pulse Resp B/P Pulse Ox O2 Delivery O2 Flow Rate FiO2 12/25/16 19:01 103 16 99 Nasal Cannula 2.0 28 12/25/16 18:52 Nasal Cannula 2.0 28 12/25/16 18:52 97 Nasal Cannula 2.0 28 12/25/16 18:52 28 12/25/16 18:52 102 16 95 Nasal Cannula 2.0 28 12/25/16 17:55 94 12/25/16 16:00 98 12/25/16 16:00 98.1 99 20 142/78 95 Nasal Cannula 2.0 12/25/16 15:05 105 18 99 Nasal Cannula 2.0 28 12/25/16 14:55 103 16 96 Nasal Cannula 2.0 28 12/25/16 14:55 28 12/25/16 12:00 97.9 98 20 147/79 96 Nasal Cannula 2.0 12/25/16 11:25 98 16 99 Nasal Cannula 2.0 28 12/25/16 11:15 28 12/25/16 11:15 98 16 97 Nasal Cannula 2.0 28 12/25/16 08:00 97 12/25/16 08:00 97.5 107 18 153/72 95 Nasal Cannula 2.0 12/25/16 07:16 95 18 98 Nasal Cannula 2.0 12/25/16 07:06 28 12/25/16 07:06 Nasal Cannula 2.0 28 12/25/16 07:06 96 Nasal Cannula 2.0 28 12/25/16 07:06 95 16 96 Nasal Cannula 2.0 28 12/25/16 04:00 105 12/25/16 04:00 97.4 103 20 128/72 94 Nasal Cannula 2.0 12/25/16 03:48 102 18 100 Nasal Cannula 2.0 12/25/16 03:44 104 18 97 Nasal Cannula 2.0 12/25/16 00:00 97.7 111 18 123/78 93 Nasal Cannula 2.0 12/25/16 00:00 108 12/24/16 23:17 110 18 99 Nasal Cannula 2.0 12/24/16 23:07 113 18 93 Nasal Cannula 2.0 Intake and Output 12/24/16 12/25/16 19:00 07:00 Intake Total 450 ml 300 ml Balance 450 ml 300 ml Intake Oral 450 ml 300 ml # Voids 2 3 Laboratory Tests 12/25/16 03:50: White Blood Count 12.7H, Red Blood Count 4.32, Hemoglobin 13.7, Hematocrit 40.8 , Mean Corpuscular Volume 94, Mean Corpuscular Hemoglobin 31.6H, Mean Corpuscular Hemoglobin Concent 33.5, Red Cell Distribution Width 12.0, Platelet Count 351, Mean Platelet Volume 6.1L, Neutrophils (%) (Auto) , Lymphocytes (%) ( Auto) , Monocytes (%) (Auto) , Eosinophils (%) (Auto) , Basophils (%) (Auto) , Sodium Level 121L, Potassium Level 4.2, Chloride Level 79L, Carbon Dioxide Level 24, Anion Gap 18H, Blood Urea Nitrogen 14, Creatinine 0.4L, Estimat Glomerular Filtration Rate , Glucose Level 182H, Calcium Level 9.0, Total Bilirubin < 0.2, Aspartate Amino Transf (AST/SGOT) 22, Alanine Aminotransferase (ALT/SGPT) 14, Alkaline Phosphatase 83, Total Protein 6.2L, Albumin 3.2L, Globulin 3.0, Albumin/Globulin Ratio 1.0 Height (Feet): 4 Height (Inches): 8.00 Weight (Pounds): 86 General Appearance: WD/WN, alert, thin Neck: supple Cardiovascular: regular rhythm Respiratory/Chest: crackles/rales, rhonchi - bilaterally, expiratory wheezing Abdomen: normal bowel sounds, non tender, soft, no organomegaly Extremities: normal range of motion Edema: no edema noted Arm (L), no edema noted Arm (R), no edema noted Leg (L), no edema noted Leg (R), no edema noted Pedal (L), no edema noted Pedal (R), no edema noted Generalized Neurologic: thermoscrew operator II-XII grossly normal, alert, oriented x 3, responsive ROSS BROCK Dec 25, 2016 20:27
[2016-12-26] VITALS: BP 147/80
[2016-12-26] MEDS: DuoNeb 0.5-3(2.5)mg/3ml neb HHN SCH ×7 (03:00→23:00)
[2016-12-26 04:00] VITALS: BP 154/75
[2016-12-26 05:30] LABS: ALANINE AMINOTRANSFERASE 16 U/L (3-33); ALBUMIN/GLOBULIN RATIO 1.1 (1.0-2.7); ANION GAP 12 (5-15); ASPARTATE AMINO TRANSFERASE 18 U/L (5-40); CALCIUM 8.6 mg/dL (8.6-10.2); CARBON DIOXIDE 27 mEQ/L (20-30); CHLORIDE 82 mEQ/L (98-107); CREATININE 0.4 mg/dL (0.5-0.9); HEMOLYSIS 4; POTASSIUM 4.2 mEQ/L (3.4-4.9); SODIUM 121 mEQ/L (135-145); TOTAL PROTEIN 5.6 g/dL (6.6-8.7)
[2016-12-26] MEDS: Solu-MEDROL 125mg Inj IVP SCH (06:11)
[2016-12-26 07:43] LABS: MEAN CORPUSCULAR HEMOGLOBIN 31.7 PG (27.0-31.0); MEAN CORPUSCULAR HGB CONC 33.6 G/DL (32.0-36.0); MEAN CORPUSCULAR VOLUME 94 FL (80-99); MEAN PLATELET VOLUME 5.4 FL (6.5-10.1); PLATELET COUNT 369 K/UL (150-450)
[2016-12-26] MEDS ORDERED: Zolpidem 5mg tab ORAL PRN (07:45)
[2016-12-26 08:00] VITALS: BP 136/75
--- NOTE | 2016-12-26 08:09 | Pulmonology Progress Note ---
Assessment/Plan Assessment/Plan IMPRESSION: 1. COPD with acute exacerbation. 2. Shortness of breath. 3. Respiratory insufficiency. 4. Profound hyponatremia. 5. Depression. PLAN ambien prn IV solumedrol taper respiratory care oxygen therapy assess home needs and dc planning lives alone and very fragile may dc tele maintain inhaler-Advair impression, plan, and exam edited and reviewed in detail care discussed with RN Subjective Allergies: Coded Allergies: No Known Allergies (Unverified , 12/23/16) Subjective not as congested and sob as prior on oxygen awake co insomnia Objective Last 24 Hour Vital Signs Date Time Temp Pulse Resp B/P Pulse Ox O2 Delivery O2 Flow Rate FiO2 12/26/16 04:00 89 12/26/16 04:00 98.0 79 20 154/75 98 Nasal Cannula 2.0 12/26/16 02:57 Nasal Cannula 2.0 28 12/26/16 02:56 98 14 97 Nasal Cannula 2.0 28 12/26/16 00:00 93 12/26/16 00:00 98.2 85 20 147/80 97 Nasal Cannula 2.0 12/25/16 23:20 102 16 99 Nasal Cannula 2.0 28 12/25/16 23:06 28 12/25/16 23:05 103 16 95 Nasal Cannula 2.0 28 12/25/16 20:00 97.9 110 20 105/62 97 Nasal Cannula 2.0 12/25/16 20:00 110 12/25/16 19:01 103 16 99 Nasal Cannula 2.0 28 12/25/16 18:52 Nasal Cannula 2.0 28 12/25/16 18:52 97 Nasal Cannula 2.0 28 12/25/16 18:52 28 12/25/16 18:52 102 16 95 Nasal Cannula 2.0 28 12/25/16 17:55 94 12/25/16 16:00 98 12/25/16 16:00 98.1 99 20 142/78 95 Nasal Cannula 2.0 12/25/16 15:05 105 18 99 Nasal Cannula 2.0 28 12/25/16 14:55 103 16 96 Nasal Cannula 2.0 28 12/25/16 14:55 28 12/25/16 12:00 97.9 98 20 147/79 96 Nasal Cannula 2.0 12/25/16 11:25 98 16 99 Nasal Cannula 2.0 28 12/25/16 11:15 28 12/25/16 11:15 98 16 97 Nasal Cannula 2.0 28 Intake and Output 12/25/16 12/26/16 19:00 07:00 Intake Total 450 ml Balance 450 ml Intake Oral 450 ml # Voids 2 4 Objective GENERAL: A well developed female, comfortable.improved cough HEENT: Fairly negative. EOMI NECK: Supple. LUNGS: reduced wheezing and rhonchi. Moderate air entry. CARDIAC: S1 and S2. Regular, rate, and rhythm. No murmurs, rubs,or gallops. ABDOMEN: Soft and nontender. No distention. no HSM EXTREMITIES: No cyanosis or clubbing. No edema. NEUROLOGIC: Grossly nonfocal. Alert and oriented x3. Microbiology Date/Time Source Procedure Growth Status 12/23/16 13:55 Blood Blood Culture - Preliminary NO GROWTH AFTER 24 HOURS Resulted 12/23/16 13:25 Blood Blood Culture - Preliminary NO GROWTH AFTER 24 HOURS Resulted Laboratory Tests 12/26/16 04:05: White Blood Count 12.0H, Red Blood Count 4.20, Hemoglobin 13.3, Hematocrit 39.6 , Mean Corpuscular Volume 94, Mean Corpuscular Hemoglobin 31.7H, Mean Corpuscular Hemoglobin Concent 33.6, Red Cell Distribution Width 12.0, Platelet Count 369, Mean Platelet Volume 5.4L, Neutrophils (%) (Auto) , Lymphocytes (%) ( Auto) , Monocytes (%) (Auto) , Eosinophils (%) (Auto) , Basophils (%) (Auto) , Neutrophils % (Manual) [Pending], Lymphocytes % (Manual) [Pending], Platelet Estimate [Pending], Platelet Morphology [Pending], Sodium Level 121L, Potassium Level 4.2, Chloride Level 82L, Carbon Dioxide Level 27, Anion Gap 12, Blood Urea Nitrogen 12, Creatinine 0.4L, Estimat Glomerular Filtration Rate , Glucose Level 184H, Calcium Level 8.6, Total Bilirubin < 0.2, Aspartate Amino Transf ( AST/SGOT) 18, Alanine Aminotransferase (ALT/SGPT) 16, Alkaline Phosphatase 69, Total Protein 5.6L, Albumin 3.0L, Globulin 2.6, Albumin/Globulin Ratio 1.1, Thyroid Stimulating Hormone (TSH) 0.250L Current Medications Medications (Trade) Dose Ordered Sig/Ha Route PRN Reason Start Time Stop Time Status Last Admin Dose Admin Albuterol/ Ipratropium (DuoNeb 0.5-3(2.5)mg/3ml) 3 ml Q4HRT HHN 12/23/16 19:00 12/28/16 18:59 12/25/16 23:05 Aspirin (Ecotrin) 81 mg DAILY ORAL 12/24/16 09:00 01/23/17 08:59 12/25/16 09:20 Ceftriaxone Sodium/Dextrose (Rocephin/D5W) 55 ml @ 110 mls/hr Q24H IVPB 12/24/16 14:00 12/31/16 13:59 12/25/16 13:19 Duloxetine HCl (Cymbalta) 30 mg DAILY ORAL 12/24/16 09:00 01/23/17 08:59 12/25/16 09:21 Gabapentin (Neurontin) 400 mg THREE TIMES A DAY ORAL 12/23/16 22:00 01/22/17 21:59 12/25/16 18:23 Heparin Sodium (Porcine) (Heparin 5000 units/ml) 5,000 units EVERY 12 HOURS SUBQ 12/23/16 21:00 01/22/17 20:59 12/25/16 21:16 Levofloxacin (Levaquin) 250 mg Q24H ORAL 12/24/16 18:00 12/31/16 17:59 12/25/16 18:23 Methylprednisolone Sodium Succinate (Solu-MEDROL) 60 mg EVERY 8 HOURS IVP 12/23/16 22:00 01/22/17 21:59 12/26/16 06:11 Oxybutynin Chloride (Ditropan) 5 mg BID ORAL 12/23/16 21:00 01/22/17 20:59 12/25/16 18:23 Pantoprazole 40 mg 40 mg DAILY ORAL 12/24/16 09:00 01/23/17 08:59 12/25/16 09:21 Salmeterol Xinafoate/ Fluticasone (Advair 250/50 Diskus) 1 puffs BID INH 12/24/16 10:00 01/23/17 09:59 12/25/16 21:25 Sodium Chloride (NaCl) 2 gm BID ORAL 12/26/16 09:00 01/25/17 08:59 Zolpidem Tartrate (Ambien) 5 mg HSPRN PRN ORAL Insomnia 12/26/16 07:45 01/25/17 07:44 LESLYE PAZ Dec 26, 2016 08:09
[2016-12-26] MEDS: Advair 250/50 Inhaler - 14 dose INH SCH ×2 (09:13→21:14)
[2016-12-26] MEDS: DULoxetine 30mg cap ORAL SCH (10:11)
[2016-12-26] MEDS: Sodium Chloride 1gm Tab ORAL SCH ×2 (10:11→21:23)
[2016-12-26] MEDS: Aspirin EC 81mg tab ORAL SCH (10:12)
[2016-12-26] MEDS: Oxybutynin 5mg tab ORAL SCH ×2 (10:12→18:54)
[2016-12-26] MEDS: Heparin 5000 units/ml inj SUBQ SCH ×2 (10:15→21:25)
--- NOTE | 2016-12-26 10:16 | General Progress Note ---
Assessment/Plan Problem List: (1) COPD (chronic obstructive pulmonary disease) ICD Codes: J44.9 - Chronic obstructive pulmonary disease, unspecified SNOMED: 47051641 (2) Respiratory failure ICD Codes: J96.90 - Respiratory failure, unspecified, unspecified whether with hypoxia or hypercapnia SNOMED: [id number] Status: stable, progressing Assessment/Plan iv steroids- weaning resp rx dvt and stress ulcer prophyalxis o2 increase nacl water restrict ivf- ordered remains tenuous Subjective ROS Limited/Unobtainable: No Constitutional: Reports: malaise, weakness HEENT: Reports: no symptoms Cardiovascular: Reports: no symptoms Respiratory: Reports: cough, shortness of breath, sputum, wheezing Gastrointestinal/Abdominal: Reports: no symptoms Genitourinary: Reports: no symptoms Neurologic/Psychiatric: Reports: no symptoms Endocrine: Reports: no symptoms Hematologic/Lymphatic: Reports: no symptoms Allergies: Coded Allergies: No Known Allergies (Unverified , 12/23/16) All Systems: reviewed and negative except above Subjective no events. doing better. less congested and sob. pulm noted. sodium still low Objective Last 24 Hour Vital Signs Date Time Temp Pulse Resp B/P Pulse Ox O2 Delivery O2 Flow Rate FiO2 12/26/16 08:10 105 18 100 Nasal Cannula 2.0 12/26/16 08:00 90 12/26/16 08:00 96.8 104 18 136/75 99 Nasal Cannula 2.0 12/26/16 08:00 109 18 97 Nasal Cannula 2.0 12/26/16 07:48 96 Nasal Cannula 2.0 12/26/16 07:46 Nasal Cannula 2.0 12/26/16 04:00 89 12/26/16 04:00 98.0 79 20 154/75 98 Nasal Cannula 2.0 12/26/16 02:57 Nasal Cannula 2.0 28 12/26/16 02:56 98 14 97 Nasal Cannula 2.0 28 12/26/16 00:00 93 12/26/16 00:00 98.2 85 20 147/80 97 Nasal Cannula 2.0 12/25/16 23:20 102 16 99 Nasal Cannula 2.0 28 12/25/16 23:06 28 12/25/16 23:05 103 16 95 Nasal Cannula 2.0 28 12/25/16 20:00 97.9 110 20 105/62 97 Nasal Cannula 2.0 12/25/16 20:00 110 12/25/16 19:01 103 16 99 Nasal Cannula 2.0 28 12/25/16 18:52 Nasal Cannula 2.0 28 12/25/16 18:52 97 Nasal Cannula 2.0 28 12/25/16 18:52 28 12/25/16 18:52 102 16 95 Nasal Cannula 2.0 28 12/25/16 17:55 94 12/25/16 16:00 98 12/25/16 16:00 98.1 99 20 142/78 95 Nasal Cannula 2.0 12/25/16 15:05 105 18 99 Nasal Cannula 2.0 28 12/25/16 14:55 103 16 96 Nasal Cannula 2.0 28 12/25/16 14:55 28 12/25/16 12:00 97.9 98 20 147/79 96 Nasal Cannula 2.0 12/25/16 11:25 98 16 99 Nasal Cannula 2.0 28 12/25/16 11:15 28 12/25/16 11:15 98 16 97 Nasal Cannula 2.0 28 Intake and Output 12/25/16 12/26/16 19:00 07:00 Intake Total 450 ml Balance 450 ml Intake Oral 450 ml # Voids 2 4 Laboratory Tests 12/26/16 04:05: White Blood Count 12.0H, Red Blood Count 4.20, Hemoglobin 13.3, Hematocrit 39.6 , Mean Corpuscular Volume 94, Mean Corpuscular Hemoglobin 31.7H, Mean Corpuscular Hemoglobin Concent 33.6, Red Cell Distribution Width 12.0, Platelet Count 369, Mean Platelet Volume 5.4L, Neutrophils (%) (Auto) , Lymphocytes (%) ( Auto) , Monocytes (%) (Auto) , Eosinophils (%) (Auto) , Basophils (%) (Auto) , Neutrophils % (Manual) [Pending], Lymphocytes % (Manual) [Pending], Platelet Estimate [Pending], Platelet Morphology [Pending], Sodium Level 121L, Potassium Level 4.2, Chloride Level 82L, Carbon Dioxide Level 27, Anion Gap 12, Blood Urea Nitrogen 12, Creatinine 0.4L, Estimat Glomerular Filtration Rate , Glucose Level 184H, Calcium Level 8.6, Total Bilirubin < 0.2, Aspartate Amino Transf ( AST/SGOT) 18, Alanine Aminotransferase (ALT/SGPT) 16, Alkaline Phosphatase 69, Total Protein 5.6L, Albumin 3.0L, Globulin 2.6, Albumin/Globulin Ratio 1.1, Thyroid Stimulating Hormone (TSH) 0.250L Height (Feet): 4 Height (Inches): 8.00 Weight (Pounds): 86 Objective General Appearance: WD/WN, alert, thin Neck: supple Cardiovascular: regular rhythm Respiratory/Chest: bilterally rhonchi and wheezes- less Abdomen: normal bowel sounds, non tender, soft, no organomegaly Extremities: normal range of motion Edema: no edema noted Arm (L), no edema noted Arm (R), no edema noted Leg (L), no edema noted Leg (R), no edema noted Pedal (L), no edema noted Pedal (R), no edema noted Generalized Neurologic: profile saw operator II-XII grossly normal, alert, oriented x 3, responsive ROSS BROCK Dec 26, 2016 10:16
[2016-12-26] MEDS ORDERED: NaCl 3% 500ml 250 ML IV ONE (11:00)
[2016-12-26 11:09] LABS: BAND NEUTROPHILS % (MANUAL) 0 % (0-8); BASOPHILS % (MANUAL) 0 % (0-2); EOSINOPHILS % (MANUAL) 0 % (0-3); LYMPHOCYTES % (MANUAL) 4 % (20-45); NEUTROPHILS % (MANUAL) 95 % (45-75); PLATELET ESTIMATE ADEQUATE; PLATELET MORPHOLOGY NORMAL; TOTAL CELLS COUNTED 100
[2016-12-26 12:00] VITALS: BP 131/76
[2016-12-26] MEDS: cefTRIAXone 1gm/D5W 55ml IVPB SCH ×2 (14:00)
[2016-12-26 16:00] VITALS: BP 148/79
[2016-12-26 20:52] VITALS: BP 158/89
[2016-12-27] VITALS: BP 144/80
[2016-12-27] MEDS: DuoNeb 0.5-3(2.5)mg/3ml neb HHN SCH ×6 (03:00→23:20)
[2016-12-27 04:00] VITALS: BP 147/88
[2016-12-27 07:19] LABS: ALANINE AMINOTRANSFERASE 20 U/L (3-33); ALBUMIN/GLOBULIN RATIO 1.1 (1.0-2.7); ANION GAP 11 (5-15); ASPARTATE AMINO TRANSFERASE 25 U/L (5-40); CALCIUM 8.9 mg/dL (8.6-10.2); CARBON DIOXIDE 30 mEQ/L (20-30); CHLORIDE 87 mEQ/L (98-107); CREATININE 0.4 mg/dL (0.5-0.9); HEMOLYSIS 6; POTASSIUM 3.7 mEQ/L (3.4-4.9); SODIUM 128 mEQ/L (135-145); TOTAL PROTEIN 5.8 g/dL (6.6-8.7)
[2016-12-27 08:00] VITALS: BP 144/81
[2016-12-27] MEDS: Oxybutynin 5mg tab ORAL SCH ×2 (08:05→18:26)
[2016-12-27] MEDS: Aspirin EC 81mg tab ORAL SCH (08:05)
[2016-12-27] MEDS: Sodium Chloride 1gm Tab ORAL SCH ×2 (08:05→18:25)
[2016-12-27] MEDS: DULoxetine 30mg cap ORAL SCH (08:05)
[2016-12-27] MEDS: Solu-MEDROL 125mg Inj IVP SCH (08:06)
[2016-12-27] MEDS: Heparin 5000 units/ml inj SUBQ SCH ×2 (08:08→21:32)
[2016-12-27] MEDS: Advair 250/50 Inhaler - 14 dose INH SCH ×2 (09:00→18:00)
--- NOTE | 2016-12-27 09:58 | Pulmonology Progress Note ---
Assessment/Plan Assessment/Plan IMPRESSION: 1. COPD with acute exacerbation. 2. Shortness of breath. 3. Respiratory insufficiency. 4. Profound hyponatremia. 5. Depression. PLAN ambien prn IV solumedrol dc in am respiratory care oxygen therapy correct sodium; consider renal consider IV NS hydration may dc tele per pulmonary maintain inhaler-Advair DVT prophylaxis impression, plan, and exam edited and reviewed in detail care discussed with RN Subjective Allergies: Coded Allergies: No Known Allergies (Unverified , 12/23/16) Subjective slow improvement on oxygen awake with some congestion Objective Last 24 Hour Vital Signs Date Time Temp Pulse Resp B/P Pulse Ox O2 Delivery O2 Flow Rate FiO2 12/27/16 08:00 88 12/27/16 08:00 96.6 88 19 144/81 100 12/27/16 07:43 92 20 100 Nasal Cannula 2.0 28 12/27/16 07:28 92 Nasal Cannula 2.0 28 12/27/16 07:28 Nasal Cannula 2.0 28 12/27/16 07:28 28 12/27/16 07:28 90 18 92 Nasal Cannula 2.0 28 12/27/16 04:00 97 12/27/16 04:00 97.4 89 20 147/88 94 Nasal Cannula 2.0 12/27/16 03:25 Nasal Cannula 2.0 28 12/27/16 03:25 Nasal Cannula 2.0 28 12/27/16 00:00 85 12/27/16 00:00 97.0 100 20 144/80 97 Nasal Cannula 2.0 12/26/16 23:22 Nasal Cannula 2.0 28 12/26/16 23:21 Nasal Cannula 2.0 28 12/26/16 20:52 97.2 104 20 158/89 96 Nasal Cannula 2.0 12/26/16 20:00 107 12/26/16 19:00 102 16 98 Nasal Cannula 2.0 28 12/26/16 18:47 Nasal Cannula 2.0 28 12/26/16 18:46 105 16 95 Nasal Cannula 2.0 28 12/26/16 18:46 95 Nasal Cannula 2.0 28 12/26/16 18:46 28 12/26/16 16:00 102 12/26/16 16:00 97.7 102 20 148/79 94 Nasal Cannula 2.0 12/26/16 15:20 104 20 98 Nasal Cannula 2.0 12/26/16 15:10 88 20 98 Nasal Cannula 2.0 12/26/16 12:00 97.3 97 19 131/76 94 Nasal Cannula 2.0 12/26/16 12:00 88 12/26/16 12:00 97.3 97 20 131/76 100 Nasal Cannula 2.0 12/26/16 11:25 93 20 100 Nasal Cannula 2.0 12/26/16 11:15 94 20 97 Nasal Cannula 2.0 Intake and Output 12/26/16 12/27/16 19:00 07:00 Intake Total 295 ml Balance 295 ml Intake Oral 120 ml IV Total 175 ml # Voids 1 4 Objective GENERAL: A well developed female, comfortable. still with some congestion HEENT: Fairly negative. EOMI NECK: Supple. LUNGS: some wheezing and rhonchi. Moderate air entry. CARDIAC: S1 and S2. Regular, rate, and rhythm. No murmurs, rubs,or gallops. ABDOMEN: Soft and nontender. No distention. no HSM EXTREMITIES: No cyanosis or clubbing. No edema. NEUROLOGIC: Grossly nonfocal. Alert and oriented x3. Laboratory Tests 12/27/16 05:15: Sodium Level 128L, Potassium Level 3.7, Chloride Level 87L, Carbon Dioxide Level 30, Anion Gap 11, Blood Urea Nitrogen 9, Creatinine 0.4L, Estimat Glomerular Filtration Rate , Glucose Level 94, Calcium Level 8.9, Total Bilirubin 0.2, Aspartate Amino Transf (AST/SGOT) 25, Alanine Aminotransferase ( ALT/SGPT) 20, Alkaline Phosphatase 70, Total Protein 5.8L, Albumin 3.1L, Globulin 2.7, Albumin/Globulin Ratio 1.1 Current Medications Medications (Trade) Dose Ordered Sig/Ha Route PRN Reason Start Time Stop Time Status Last Admin Dose Admin Albuterol/ Ipratropium (DuoNeb 0.5-3(2.5)mg/3ml) 3 ml Q4HRT HHN 12/23/16 19:00 12/28/16 18:59 12/27/16 07:28 Aspirin (Ecotrin) 81 mg DAILY ORAL 12/24/16 09:00 01/23/17 08:59 12/27/16 08:05 Ceftriaxone Sodium/Dextrose (Rocephin/D5W) 55 ml @ 110 mls/hr Q24H IVPB 12/24/16 14:00 12/31/16 13:59 12/26/16 14:00 Duloxetine HCl (Cymbalta) 30 mg DAILY ORAL 12/24/16 09:00 01/23/17 08:59 12/27/16 08:05 Gabapentin (Neurontin) 400 mg THREE TIMES A DAY ORAL 12/23/16 22:00 01/22/17 21:59 12/27/16 08:07 Heparin Sodium (Porcine) (Heparin 5000 units/ml) 5,000 units EVERY 12 HOURS SUBQ 12/23/16 21:00 01/22/17 20:59 12/27/16 08:08 Levofloxacin (Levaquin) 250 mg Q24H ORAL 12/24/16 18:00 12/31/16 17:59 12/26/16 18:54 Methylprednisolone Sodium Succinate (Solu-MEDROL) 60 mg DAILY IVP 12/27/16 09:00 01/26/17 08:59 12/27/16 08:06 Oxybutynin Chloride (Ditropan) 5 mg BID ORAL 12/23/16 21:00 01/22/17 20:59 12/27/16 08:05 Pantoprazole 40 mg 40 mg DAILY ORAL 12/24/16 09:00 01/23/17 08:59 12/27/16 08:05 Salmeterol Xinafoate/ Fluticasone (Advair 250/50 Diskus) 1 puffs BID INH 12/24/16 10:00 01/23/17 09:59 12/26/16 21:14 Sodium Chloride (NaCl) 2 gm BID ORAL 12/26/16 09:00 01/25/17 08:59 12/27/16 08:05 Zolpidem Tartrate (Ambien) 5 mg HSPRN PRN ORAL Insomnia 12/26/16 07:45 01/25/17 07:44 LESLYE PAZ Dec 27, 2016 09:58
[2016-12-27] MEDS ORDERED: Tubing IV Secondary IV ONE (10:02)
[2016-12-27] MEDS ORDERED: NS 275ml ONE (10:02)
[2016-12-27 12:00] VITALS: BP 136/60
--- NOTE | 2016-12-27 13:10 | General Progress Note ---
Assessment/Plan Problem List: (1) COPD (chronic obstructive pulmonary disease) ICD Codes: J44.9 - Chronic obstructive pulmonary disease, unspecified SNOMED: 62282883 (2) Respiratory failure ICD Codes: J96.90 - Respiratory failure, unspecified, unspecified whether with hypoxia or hypercapnia SNOMED: 455144617 Status: stable, progressing Assessment/Plan iv steroids- weaning resp rx dvt and stress ulcer prophyalxis o2 increase nacl water restrict monitor na will try to get private room remains tenuous Subjective ROS Limited/Unobtainable: No Constitutional: Reports: malaise, weakness HEENT: Reports: no symptoms Cardiovascular: Reports: no symptoms Respiratory: Reports: cough, shortness of breath, sputum, wheezing Gastrointestinal/Abdominal: Reports: no symptoms Genitourinary: Reports: no symptoms Neurologic/Psychiatric: Reports: no symptoms Endocrine: Reports: no symptoms Hematologic/Lymphatic: Reports: no symptoms Allergies: Coded Allergies: No Known Allergies (Unverified , 12/23/16) All Systems: reviewed and negative except above Subjective no events, a little more sob. no chest pain cant sleep due to loud room. requesting private room Objective Last 24 Hour Vital Signs Date Time Temp Pulse Resp B/P Pulse Ox O2 Delivery O2 Flow Rate FiO2 12/27/16 12:00 89 12/27/16 12:00 97.7 94 19 136/60 96 Nasal Cannula 2.0 12/27/16 08:00 88 12/27/16 08:00 96.6 88 19 144/81 100 12/27/16 07:43 92 20 100 Nasal Cannula 2.0 28 12/27/16 07:28 92 Nasal Cannula 2.0 28 12/27/16 07:28 Nasal Cannula 2.0 28 12/27/16 07:28 28 12/27/16 07:28 90 18 92 Nasal Cannula 2.0 28 12/27/16 04:00 97 12/27/16 04:00 97.4 89 20 147/88 94 Nasal Cannula 2.0 12/27/16 03:25 Nasal Cannula 2.0 28 12/27/16 03:25 Nasal Cannula 2.0 28 12/27/16 00:00 85 12/27/16 00:00 97.0 100 20 144/80 97 Nasal Cannula 2.0 12/26/16 23:22 Nasal Cannula 2.0 28 12/26/16 23:21 Nasal Cannula 2.0 28 12/26/16 20:52 97.2 104 20 158/89 96 Nasal Cannula 2.0 12/26/16 20:00 107 12/26/16 19:00 102 16 98 Nasal Cannula 2.0 28 12/26/16 18:47 Nasal Cannula 2.0 28 12/26/16 18:46 105 16 95 Nasal Cannula 2.0 28 12/26/16 18:46 95 Nasal Cannula 2.0 28 12/26/16 18:46 28 12/26/16 16:00 102 12/26/16 16:00 97.7 102 20 148/79 94 Nasal Cannula 2.0 12/26/16 15:20 104 20 98 Nasal Cannula 2.0 12/26/16 15:10 88 20 98 Nasal Cannula 2.0 Intake and Output 12/26/16 12/27/16 19:00 07:00 Intake Total 295 ml Balance 295 ml Intake Oral 120 ml IV Total 175 ml # Voids 1 4 Laboratory Tests 12/27/16 05:15: Sodium Level 128L, Potassium Level 3.7, Chloride Level 87L, Carbon Dioxide Level 30, Anion Gap 11, Blood Urea Nitrogen 9, Creatinine 0.4L, Estimat Glomerular Filtration Rate , Glucose Level 94, Calcium Level 8.9, Total Bilirubin 0.2, Aspartate Amino Transf (AST/SGOT) 25, Alanine Aminotransferase ( ALT/SGPT) 20, Alkaline Phosphatase 70, Total Protein 5.8L, Albumin 3.1L, Globulin 2.7, Albumin/Globulin Ratio 1.1 Height (Feet): 4 Height (Inches): 8.00 Weight (Pounds): 86 Objective General Appearance: WD/WN, alert, thin Neck: supple Cardiovascular: regular rhythm Respiratory/Chest: bilterally rhonchi and wheezes- less Abdomen: normal bowel sounds, non tender, soft, no organomegaly Extremities: normal range of motion Edema: no edema noted Arm (L), no edema noted Arm (R), no edema noted Leg (L), no edema noted Leg (R), no edema noted Pedal (L), no edema noted Pedal (R), no edema noted Generalized Neurologic: general farmer II-XII grossly normal, alert, oriented x 3, responsive ROSS BROCK Dec 27, 2016 13:10
[2016-12-27] MEDS: cefTRIAXone 1gm/D5W 55ml IVPB SCH ×2 (13:37)
[2016-12-27 16:00] VITALS: BP 140/62
[2016-12-27 20:00] VITALS: BP 121/72
[2016-12-28] VITALS: BP 127/76
[2016-12-28] MEDS: DuoNeb 0.5-3(2.5)mg/3ml neb HHN SCH ×5 (03:00→18:54)
[2016-12-28 04:00] VITALS: BP 120/81
[2016-12-28 08:00] VITALS: BP 154/76
[2016-12-28] MEDS: Solu-MEDROL 125mg Inj IVP SCH (08:24)
[2016-12-28] MEDS: Sodium Chloride 1gm Tab ORAL SCH (08:24)
[2016-12-28] MEDS: Aspirin EC 81mg tab ORAL SCH (08:25)
[2016-12-28] MEDS: DULoxetine 30mg cap ORAL SCH (08:25)
[2016-12-28] MEDS: Oxybutynin 5mg tab ORAL SCH ×2 (08:26→17:36)
[2016-12-28] MEDS: Heparin 5000 units/ml inj SUBQ SCH ×2 (08:28→20:12)
--- NOTE | 2016-12-28 08:48 | Cardiology Report ---
APPROVED REPORT EKG Measurement Heart [id number] Sinus tachycardia Possible Left atrial enlargement Left axis deviation Inferior infarct, age undetermined Anterior infarct, age undetermined Abnormal ECG
[2016-12-28] MEDS: Advair 250/50 Inhaler - 14 dose INH SCH ×2 (09:00→18:52)
--- NOTE | 2016-12-28 11:29 | Pulmonology Progress Note ---
Assessment/Plan Assessment/Plan IMPRESSION: 1. COPD with acute exacerbation. 2. Shortness of breath. 3. Respiratory insufficiency. 4. Profound hyponatremia. 5. Depression. PLAN ambien prn dc solumedrol respiratory care oxygen therapy correct sodium; consider renal maintain inhaler-Advair DVT prophylaxis dc planning ok per pulmonary impression, plan, and exam edited and reviewed in detail care discussed with RN Subjective Allergies: Coded Allergies: No Known Allergies (Unverified , 12/23/16) Subjective continues to improve on oxygen and comfortable reduced congestion congestion Objective Last 24 Hour Vital Signs Date Time Temp Pulse Resp B/P Pulse Ox O2 Delivery O2 Flow Rate FiO2 12/28/16 09:24 97.7 12/28/16 08:00 97.5 87 18 154/76 95 Nasal Cannula 2.0 12/28/16 08:00 92 12/28/16 07:31 93 18 100 Nasal Cannula 2.0 12/28/16 07:23 Nasal Cannula 2.0 12/28/16 07:23 96 Nasal Cannula 2.0 12/28/16 07:23 77 18 96 Nasal Cannula 2.0 12/28/16 04:00 97.7 80 20 120/81 99 Nasal Cannula 2.0 12/28/16 04:00 76 12/28/16 03:22 Nasal Cannula 12/28/16 03:21 Nasal Cannula 12/28/16 00:00 91 12/28/16 00:00 97.7 82 20 127/76 97 Nasal Cannula 2.0 12/27/16 23:30 94 18 100 Nasal Cannula 2.0 28 12/27/16 23:20 92 18 99 Nasal Cannula 2.0 28 12/27/16 23:20 28 12/27/16 20:00 111 12/27/16 20:00 97.7 109 20 121/72 98 Nasal Cannula 2.0 12/27/16 19:29 93 18 100 Nasal Cannula 2.0 28 12/27/16 19:00 28 12/27/16 18:59 84 18 99 Nasal Cannula 2.0 28 12/27/16 18:59 98 Nasal Cannula 2.0 28 12/27/16 18:59 Nasal Cannula 2.0 28 12/27/16 16:00 96.3 87 18 140/62 Room Air 2.0 98 12/27/16 16:00 83 12/27/16 15:35 88 18 100 Nasal Cannula 2.0 28 12/27/16 15:20 91 21 96 Nasal Cannula 2.0 28 12/27/16 15:20 28 12/27/16 12:00 89 12/27/16 12:00 97.7 94 19 136/60 96 Nasal Cannula 2.0 12/27/16 11:31 90 20 100 Nasal Cannula 2.0 28 Intake and Output 12/27/16 12/28/16 19:00 07:00 Intake Total 510 ml Balance 510 ml Intake Oral 400 ml IV Total 110 ml # Voids 3 2 Objective GENERAL: A well developed female, comfortable. still with some congestion HEENT: Fairly negative. EOMI NECK: Supple. LUNGS: improved wheezing and rhonchi. Moderate air entry. CARDIAC: S1 and S2. Regular, rate, and rhythm. No murmurs, rubs,or gallops. ABDOMEN: Soft and nontender. No distention. no HSM EXTREMITIES: No cyanosis or clubbing. No edema. NEUROLOGIC: Grossly nonfocal. Alert and oriented x3. Current Medications Medications (Trade) Dose Ordered Sig/Ha Route PRN Reason Start Time Stop Time Status Last Admin Dose Admin Albuterol/ Ipratropium (DuoNeb 0.5-3(2.5)mg/3ml) 3 ml Q4HRT HHN 12/23/16 19:00 12/28/16 18:59 12/28/16 07:23 Aspirin (Ecotrin) 81 mg DAILY ORAL 12/24/16 09:00 01/23/17 08:59 12/28/16 08:25 Ceftriaxone Sodium/Dextrose (Rocephin/D5W) 55 ml @ 110 mls/hr Q24H IVPB 12/24/16 14:00 12/31/16 13:59 12/27/16 13:37 Duloxetine HCl (Cymbalta) 30 mg DAILY ORAL 12/24/16 09:00 01/23/17 08:59 12/28/16 08:25 Gabapentin (Neurontin) 400 mg THREE TIMES A DAY ORAL 12/23/16 22:00 01/22/17 21:59 12/28/16 08:25 Heparin Sodium (Porcine) (Heparin 5000 units/ml) 5,000 units EVERY 12 HOURS SUBQ 12/23/16 21:00 01/22/17 20:59 12/28/16 08:28 Levofloxacin (Levaquin) 250 mg Q24H ORAL 12/24/16 18:00 12/31/16 17:59 12/27/16 18:25 Methylprednisolone Sodium Succinate (Solu-MEDROL) 60 mg DAILY IVP 12/27/16 09:00 01/26/17 08:59 12/28/16 08:24 Oxybutynin Chloride (Ditropan) 5 mg BID ORAL 12/23/16 21:00 01/22/17 20:59 12/28/16 08:26 Pantoprazole 40 mg 40 mg DAILY ORAL 12/24/16 09:00 01/23/17 08:59 12/28/16 08:24 Salmeterol Xinafoate/ Fluticasone (Advair 250/50 Diskus) 1 puffs BID INH 12/24/16 10:00 01/23/17 09:59 12/27/16 18:00 Sodium Chloride (NaCl) 2 gm BID ORAL 12/26/16 09:00 01/25/17 08:59 12/28/16 08:24 Zolpidem Tartrate (Ambien) 5 mg HSPRN PRN ORAL Insomnia 12/26/16 07:45 01/25/17 07:44 12/28/16 01:23 LESLYE PAZ Dec 28, 2016 11:29
[2016-12-28 12:00] VITALS: BP 127/72
[2016-12-28] MEDS: cefTRIAXone 1gm/D5W 55ml IVPB SCH ×2 (13:48)
[2016-12-28 16:00] VITALS: BP 135/83
--- NOTE | 2016-12-28 17:38 | General Progress Note ---
Assessment/Plan Problem List: (1) COPD (chronic obstructive pulmonary disease) ICD Codes: J44.9 - Chronic obstructive pulmonary disease, unspecified SNOMED: 69458721 (2) Respiratory failure ICD Codes: J96.90 - Respiratory failure, unspecified, unspecified whether with hypoxia or hypercapnia SNOMED: 669109140 Status: stable, progressing Assessment/Plan po steroids- weaning resp rx dvt and stress ulcer prophyalxis o2 dc nacl tabs water restrict monitor na imptoving pt/ot eval Subjective ROS Limited/Unobtainable: No Constitutional: Reports: malaise, weakness HEENT: Reports: no symptoms Cardiovascular: Reports: no symptoms Respiratory: Reports: cough, shortness of breath, sputum, wheezing Gastrointestinal/Abdominal: Reports: no symptoms Genitourinary: Reports: no symptoms Neurologic/Psychiatric: Reports: no symptoms Endocrine: Reports: no symptoms Hematologic/Lymphatic: Reports: no symptoms Allergies: Coded Allergies: No Known Allergies (Unverified , 12/23/16) All Systems: reviewed and negative except above Subjective no events, less sob sob. no chest pain slept better last night. pulm noted Objective Last 24 Hour Vital Signs Date Time Temp Pulse Resp B/P Pulse Ox O2 Delivery O2 Flow Rate FiO2 12/28/16 16:00 97.5 81 18 135/83 99 Nasal Cannula 2.0 12/28/16 14:47 97.7 12/28/16 14:32 82 18 Nasal Cannula 2.0 12/28/16 14:32 Nasal Cannula 2.0 12/28/16 12:00 98.1 82 20 127/72 96 Nasal Cannula 2.0 12/28/16 12:00 82 12/28/16 11:30 Nasal Cannula 2.0 12/28/16 11:30 Nasal Cannula 2.0 12/28/16 08:00 97.5 87 18 154/76 95 Nasal Cannula 2.0 12/28/16 08:00 92 12/28/16 07:31 93 18 100 Nasal Cannula 2.0 12/28/16 07:23 Nasal Cannula 2.0 12/28/16 07:23 96 Nasal Cannula 2.0 12/28/16 07:23 77 18 96 Nasal Cannula 2.0 12/28/16 04:00 97.7 80 20 120/81 99 Nasal Cannula 2.0 12/28/16 04:00 76 12/28/16 03:22 Nasal Cannula 12/28/16 03:21 Nasal Cannula 12/28/16 00:00 91 12/28/16 00:00 97.7 82 20 127/76 97 Nasal Cannula 2.0 12/27/16 23:30 94 18 100 Nasal Cannula 2.0 28 12/27/16 23:20 92 18 99 Nasal Cannula 2.0 28 12/27/16 23:20 28 12/27/16 20:00 111 12/27/16 20:00 97.7 109 20 121/72 98 Nasal Cannula 2.0 12/27/16 19:29 93 18 100 Nasal Cannula 2.0 28 12/27/16 19:00 28 12/27/16 18:59 84 18 99 Nasal Cannula 2.0 28 12/27/16 18:59 98 Nasal Cannula 2.0 28 12/27/16 18:59 Nasal Cannula 2.0 28 Intake and Output 12/27/16 12/28/16 19:00 07:00 Intake Total 510 ml Balance 510 ml Intake Oral 400 ml IV Total 110 ml # Voids 3 2 Height (Feet): 4 Height (Inches): 8.00 Weight (Pounds): 86 Objective General Appearance: WD/WN, alert, thin Neck: supple Cardiovascular: regular rhythm Respiratory/Chest: few wheezes/rhonchi bilaterally Abdomen: normal bowel sounds, non tender, soft, no organomegaly Extremities: normal range of motion Edema: no edema noted Arm (L), no edema noted Arm (R), no edema noted Leg (L), no edema noted Leg (R), no edema noted Pedal (L), no edema noted Pedal (R), no edema noted 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
[2016-12-28 20:00] VITALS: BP 128/76
[2016-12-29] VITALS: BP 121/72
[2016-12-29 04:00] VITALS: BP 145/64
[2016-12-29 05:11] LABS: ALANINE AMINOTRANSFERASE 16 U/L (3-33); ALBUMIN/GLOBULIN RATIO 0.9 (1.0-2.7); ANION GAP 11 (5-15); ASPARTATE AMINO TRANSFERASE 18 U/L (5-40); CALCIUM 8.5 mg/dL (8.6-10.2); CARBON DIOXIDE 29 mEQ/L (20-30); CHLORIDE 84 mEQ/L (98-107); CREATININE 0.4 mg/dL (0.5-0.9); HEMOLYSIS 10; POTASSIUM 3.8 mEQ/L (3.4-4.9); SODIUM 124 mEQ/L (135-145); TOTAL PROTEIN 5.3 g/dL (6.6-8.7)
--- NOTE | 2016-12-29 07:41 | Pulmonology Progress Note ---
Assessment/Plan Assessment/Plan IMPRESSION: 1. COPD with acute exacerbation. 2. Shortness of breath. 3. Respiratory insufficiency. 4. Profound hyponatremia. 5. Depression. PLAN ambien prn on prednisone and taper respiratory care oxygen therapy correct sodium; water restriction maintain inhaler-Advair DVT prophylaxis dc planning ok per pulmonary but sodium still an issue impression, plan, and exam edited and reviewed in detail care discussed with RN Subjective Allergies: Coded Allergies: No Known Allergies (Unverified , 12/23/16) Subjective no distress on oxygen and comfortable reduced congestion and comfortable Objective Last 24 Hour Vital Signs Date Time Temp Pulse Resp B/P Pulse Ox O2 Delivery O2 Flow Rate FiO2 12/29/16 04:00 97.4 83 20 145/64 96 Nasal Cannula 2.0 12/29/16 04:00 89 12/29/16 03:17 Nasal Cannula 2.0 12/29/16 03:16 Nasal Cannula 2.0 12/29/16 00:00 76 12/29/16 00:00 97.9 77 20 121/72 97 Nasal Cannula 2.0 12/28/16 23:33 80 18 97 Nasal Cannula 2.0 12/28/16 23:32 78 18 97 Nasal Cannula 2.0 12/28/16 20:00 97.8 78 18 128/76 98 Nasal Cannula 2.0 12/28/16 20:00 106 12/28/16 18:56 87 18 98 Nasal Cannula 2.0 12/28/16 18:55 90 18 96 Nasal Cannula 2.0 12/28/16 18:54 96 Nasal Cannula 2.0 12/28/16 18:54 Nasal Cannula 2.0 12/28/16 18:35 97.5 12/28/16 16:00 97.5 81 18 135/83 99 Nasal Cannula 2.0 12/28/16 16:00 88 12/28/16 15:23 Nasal Cannula 2.0 12/28/16 14:32 82 18 Nasal Cannula 2.0 12/28/16 14:32 Nasal Cannula 2.0 12/28/16 12:00 98.1 82 20 127/72 96 Nasal Cannula 2.0 12/28/16 12:00 82 12/28/16 11:30 Nasal Cannula 2.0 12/28/16 11:30 Nasal Cannula 2.0 12/28/16 08:00 97.5 87 18 154/76 95 Nasal Cannula 2.0 12/28/16 08:00 92 Intake and Output 12/28/16 12/29/16 19:00 07:00 # Voids 2 5 Objective GENERAL: A well developed female, comfortable. still with some congestion HEENT: Fairly negative. EOMI NECK: Supple. LUNGS: improved wheezing and rhonchi. Moderate air entry. CARDIAC: S1 and S2. Regular, rate, and rhythm. No murmurs, rubs,or gallops. ABDOMEN: Soft and nontender. No distention. no HSM EXTREMITIES: No cyanosis or clubbing. No edema. NEUROLOGIC: Grossly nonfocal. Alert and oriented x3. Laboratory Tests 12/29/16 03:50: Sodium Level 124L, Potassium Level 3.8, Chloride Level 84L, Carbon Dioxide Level 29, Anion Gap 11, Blood Urea Nitrogen 15, Creatinine 0.4L, Estimat Glomerular Filtration Rate , Glucose Level 118H, Calcium Level 8.5L, Total Bilirubin < 0.2, Aspartate Amino Transf (AST/SGOT) 18, Alanine Aminotransferase (ALT/SGPT) 16, Alkaline Phosphatase 60, Total Protein 5.3L, Albumin 2.6L, Globulin 2.7, Albumin/Globulin Ratio 0.9L Current Medications Medications (Trade) Dose Ordered Sig/Ha Route PRN Reason Start Time Stop Time Status Last Admin Dose Admin Aspirin (Ecotrin) 81 mg DAILY ORAL 12/24/16 09:00 01/23/17 08:59 12/28/16 08:25 Ceftriaxone Sodium/Dextrose (Rocephin/D5W) 55 ml @ 110 mls/hr Q24H IVPB 12/24/16 14:00 12/31/16 13:59 12/28/16 13:48 Duloxetine HCl (Cymbalta) 30 mg DAILY ORAL 12/24/16 09:00 01/23/17 08:59 12/28/16 08:25 Gabapentin (Neurontin) 400 mg THREE TIMES A DAY ORAL 12/23/16 22:00 01/22/17 21:59 12/28/16 17:36 Heparin Sodium (Porcine) (Heparin 5000 units/ml) 5,000 units EVERY 12 HOURS SUBQ 12/23/16 21:00 01/22/17 20:59 12/28/16 20:12 Levofloxacin (Levaquin) 250 mg Q24H ORAL 12/24/16 18:00 12/31/16 17:59 12/28/16 17:35 Oxybutynin Chloride (Ditropan) 5 mg BID ORAL 12/23/16 21:00 01/22/17 20:59 12/28/16 17:36 Pantoprazole 40 mg 40 mg DAILY ORAL 12/24/16 09:00 01/23/17 08:59 12/28/16 08:24 Prednisone (predniSONE) 30 mg DAILY ORAL 12/29/16 09:00 01/28/17 08:59 Salmeterol Xinafoate/ Fluticasone (Advair 250/50 Diskus) 1 puffs BID INH 12/24/16 10:00 01/23/17 09:59 12/28/16 18:52 Zolpidem Tartrate (Ambien) 5 mg HSPRN PRN ORAL Insomnia 12/26/16 07:45 01/25/17 07:44 12/28/16 01:23 LESLYE PAZ Dec 29, 2016 07:40
[2016-12-29 08:00] VITALS: BP 118/61
[2016-12-29] MEDS: Advair 250/50 Inhaler - 14 dose INH SCH ×2 (08:02→20:03)
[2016-12-29] MEDS: DULoxetine 30mg cap ORAL SCH (08:40)
[2016-12-29] MEDS: Oxybutynin 5mg tab ORAL SCH ×2 (08:41→18:09)
[2016-12-29] MEDS: Aspirin EC 81mg tab ORAL SCH (08:41)
[2016-12-29] MEDS: PredniSONE 20mg tab ORAL SCH (08:41)
[2016-12-29] MEDS: Heparin 5000 units/ml inj SUBQ SCH ×2 (08:42→21:11)
--- NOTE | 2016-12-29 10:18 | General Progress Note ---
Assessment/Plan Problem List: (1) COPD (chronic obstructive pulmonary disease) ICD Codes: J44.9 - Chronic obstructive pulmonary disease, unspecified SNOMED: 47300615 (2) Respiratory failure ICD Codes: J96.90 - Respiratory failure, unspecified, unspecified whether with hypoxia or hypercapnia SNOMED: [id number] Assessment/Plan po steroids- weaning resp rx dvt and stress ulcer prophyalxis o2 dc nacl tabs water restrict monitor na imptoving pt/ot eval dc planning tomorrow Subjective ROS Limited/Unobtainable: No Constitutional: Reports: malaise, weakness HEENT: Reports: no symptoms Cardiovascular: Reports: no symptoms Respiratory: Reports: cough, shortness of breath Gastrointestinal/Abdominal: Reports: no symptoms Genitourinary: Reports: no symptoms Neurologic/Psychiatric: Reports: no symptoms Endocrine: Reports: no symptoms Hematologic/Lymphatic: Reports: no symptoms Allergies: Coded Allergies: No Known Allergies (Unverified , 12/23/16) All Systems: reviewed and negative except above Subjective no events, less sob sob. no chest pain overall doing better, Objective Last 24 Hour Vital Signs Date Time Temp Pulse Resp B/P Pulse Ox O2 Delivery O2 Flow Rate FiO2 12/29/16 09:40 97.4 12/29/16 08:00 97.3 105 22 118/61 96 Nasal Cannula 2.0 12/29/16 04:00 97.4 83 20 145/64 96 Nasal Cannula 2.0 12/29/16 04:00 89 12/29/16 03:17 Nasal Cannula 2.0 12/29/16 03:16 Nasal Cannula 2.0 12/29/16 00:00 76 12/29/16 00:00 97.9 77 20 121/72 97 Nasal Cannula 2.0 12/28/16 23:33 80 18 97 Nasal Cannula 2.0 12/28/16 23:32 78 18 97 Nasal Cannula 2.0 12/28/16 20:00 97.8 78 18 128/76 98 Nasal Cannula 2.0 12/28/16 20:00 106 12/28/16 18:56 87 18 98 Nasal Cannula 2.0 12/28/16 18:55 90 18 96 Nasal Cannula 2.0 12/28/16 18:54 96 Nasal Cannula 2.0 12/28/16 18:54 Nasal Cannula 2.0 12/28/16 16:00 97.5 81 18 135/83 99 Nasal Cannula 2.0 12/28/16 16:00 88 12/28/16 15:23 Nasal Cannula 2.0 12/28/16 14:32 82 18 Nasal Cannula 2.0 12/28/16 14:32 Nasal Cannula 2.0 12/28/16 12:00 98.1 82 20 127/72 96 Nasal Cannula 2.0 12/28/16 12:00 82 12/28/16 11:30 Nasal Cannula 2.0 12/28/16 11:30 Nasal Cannula 2.0 Intake and Output 12/28/16 12/29/16 19:00 07:00 # Voids 2 5 Laboratory Tests 12/29/16 03:50: Sodium Level 124L, Potassium Level 3.8, Chloride Level 84L, Carbon Dioxide Level 29, Anion Gap 11, Blood Urea Nitrogen 15, Creatinine 0.4L, Estimat Glomerular Filtration Rate , Glucose Level 118H, Calcium Level 8.5L, Total Bilirubin < 0.2, Aspartate Amino Transf (AST/SGOT) 18, Alanine Aminotransferase (ALT/SGPT) 16, Alkaline Phosphatase 60, Total Protein 5.3L, Albumin 2.6L, Globulin 2.7, Albumin/Globulin Ratio 0.9L Height (Feet): 4 Height (Inches): 8.00 Weight (Pounds): 86 Objective General Appearance: WD/WN, alert, thin Neck: supple Cardiovascular: regular rhythm Respiratory/Chest: few wheezes/rhonchi bilaterally Abdomen: normal bowel sounds, non tender, soft, no organomegaly Extremities: normal range of motion Edema: no edema noted Arm (L), no edema noted Arm (R), no edema noted Leg (L), no edema noted Leg (R), no edema noted Pedal (L), no edema noted Pedal (R), no edema noted 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
[2016-12-29 12:00] VITALS: BP 137/79
[2016-12-29] MEDS: cefTRIAXone 1gm/D5W 55ml IVPB SCH ×2 (13:55)
[2016-12-29 16:00] VITALS: BP 134/65
[2016-12-29 20:02] VITALS: BP 130/72
[2016-12-30] VITALS: BP 121/75
[2016-12-30 04:18] VITALS: BP 129/76
--- NOTE | 2016-12-30 06:30 | Pulmonology Progress Note ---
Assessment/Plan Assessment/Plan IMPRESSION: 1. COPD with acute exacerbation. 2. Shortness of breath. 3. Respiratory insufficiency. 4. Profound hyponatremia. 5. Depression. PLAN ambien prn medrol dose michelle on dc respiratory care dc oxygen on discharge; 100% on 2 liters maintain inhaler-Advair DVT prophylaxis dc planning ok per pulmonary impression, plan, and exam edited and reviewed in detail care discussed with RN Subjective Allergies: Coded Allergies: No Known Allergies (Unverified , 12/23/16) Subjective no distress for dc planning today Objective Last 24 Hour Vital Signs Date Time Temp Pulse Resp B/P Pulse Ox O2 Delivery O2 Flow Rate FiO2 12/30/16 04:18 97.5 64 18 129/76 100 Nasal Cannula 2.0 12/30/16 04:07 65 12/30/16 00:00 70 12/30/16 00:00 97.7 73 16 121/75 99 Nasal Cannula 2.0 12/29/16 20:05 Nasal Cannula 2.0 28 12/29/16 20:05 99 Nasal Cannula 2.0 28 12/29/16 20:02 97.8 83 18 130/72 94 Nasal Cannula 2.0 12/29/16 20:00 80 12/29/16 16:00 97.0 94 18 134/65 94 Nasal Cannula 2.0 12/29/16 16:00 72 12/29/16 14:54 97.4 12/29/16 12:00 97.2 85 20 137/79 95 Nasal Cannula 2.0 12/29/16 12:00 76 12/29/16 08:03 96 Nasal Cannula 2.0 28 12/29/16 08:03 Nasal Cannula 2.0 28 12/29/16 08:00 89 12/29/16 08:00 97.3 105 22 118/61 96 Nasal Cannula 2.0 Intake and Output 12/29/16 12/30/16 19:00 07:00 Intake Total 500 ml 240 ml Balance 500 ml 240 ml Intake Oral 500 ml 240 ml # Voids 3 Objective GENERAL: A well developed female, comfortable. still with some congestion HEENT: Fairly negative. EOMI NECK: Supple. LUNGS: resolved wheezing and rhonchi. Moderate air entry. CARDIAC: S1 and S2. Regular, rate, and rhythm. No murmurs, rubs,or gallops. ABDOMEN: Soft and nontender. No distention. no HSM EXTREMITIES: No cyanosis or clubbing. No edema. NEUROLOGIC: Grossly nonfocal. Alert and oriented x3. Current Medications Medications (Trade) Dose Ordered Sig/Ha Route PRN Reason Start Time Stop Time Status Last Admin Dose Admin Aspirin (Ecotrin) 81 mg DAILY ORAL 12/24/16 09:00 01/23/17 08:59 12/29/16 08:41 Ceftriaxone Sodium/Dextrose (Rocephin/D5W) 55 ml @ 110 mls/hr Q24H IVPB 12/24/16 14:00 12/31/16 13:59 12/29/16 13:55 Duloxetine HCl (Cymbalta) 30 mg DAILY ORAL 12/24/16 09:00 01/23/17 08:59 12/29/16 08:40 Gabapentin (Neurontin) 400 mg THREE TIMES A DAY ORAL 12/23/16 22:00 01/22/17 21:59 12/29/16 18:09 Heparin Sodium (Porcine) (Heparin 5000 units/ml) 5,000 units EVERY 12 HOURS SUBQ 12/23/16 21:00 01/22/17 20:59 12/29/16 21:11 Levofloxacin (Levaquin) 250 mg Q24H ORAL 12/24/16 18:00 12/31/16 17:59 12/29/16 18:09 Oxybutynin Chloride (Ditropan) 5 mg BID ORAL 12/23/16 21:00 01/22/17 20:59 12/29/16 18:09 Pantoprazole 40 mg 40 mg DAILY ORAL 12/24/16 09:00 01/23/17 08:59 12/29/16 08:41 Prednisone (predniSONE) 30 mg DAILY ORAL 12/29/16 09:00 01/28/17 08:59 12/29/16 08:41 Salmeterol Xinafoate/ Fluticasone (Advair 250/50 Diskus) 1 puffs BID INH 12/24/16 10:00 01/23/17 09:59 12/29/16 20:03 Zolpidem Tartrate (Ambien) 5 mg HSPRN PRN ORAL Insomnia 12/26/16 07:45 01/25/17 07:44 12/28/16 01:23 LESLYE PAZ Dec 30, 2016 06:30
[2016-12-30 08:00] VITALS: BP 121/54
[2016-12-30] MEDS: Advair 250/50 Inhaler - 14 dose INH SCH (09:10)
[2016-12-30] MEDS: PredniSONE 20mg tab ORAL SCH (09:31)
[2016-12-30] MEDS: Aspirin EC 81mg tab ORAL SCH (09:31)
[2016-12-30] MEDS: Oxybutynin 5mg tab ORAL SCH (09:31)
[2016-12-30] MEDS: DULoxetine 30mg cap ORAL SCH (09:31)
[2016-12-30] MEDS: Heparin 5000 units/ml inj SUBQ SCH (09:35)
[2016-12-30 12:30] LABS: ABG ALLEN TEST POSITIVE; ABG BASE EXCESS 6.8; ABG PCO2 43.7 mmHg (35.0-45.0)
[2016-12-30] MEDS: cefTRIAXone 1gm/D5W 55ml IVPB SCH ×2 (13:34)
[2016-12-30 16:04] VITALS: BP 139/81
--- NOTE | 2016-12-30 21:48 | Discharge Summary ---
DATE OF ADMISSION: 12/23/2016 DATE OF DISCHARGE: 12/30/2016 DISCHARGE DIAGNOSES: 1. Chronic obstructive pulmonary disease exacerbation. 2. Respiratory failure. 3. Bronchitis. 4. Hyponatremia. 5. Hypertension. 6. Hypoxemia. DISCHARGE DIAGNOSES: 1. Chronic obstructive pulmonary disease exacerbation. 2. Respiratory failure. 3. Bronchitis. 4. Hyponatremia. 5. Hypertension. 6. Hypoxemia. BRIEF HISTORY AND HOSPITAL COURSE: The patient is a very pleasant female, who has had a severe chronic obstructive pulmonary disease exacerbation. She had a slow response to treatment but with intravenous steroids and aggressive respiratory treatments with antibiotics did improve. On discharge, she was doing well. She will go home on a steroid taper as well as oral antibiotics. Home health will be arranged to recheck her sodium, which was low on admission and was still low on discharge. DISCHARGE MEDICATIONS: Please see discharge medication list for discharge medications. DIET: Regular diet. ACTIVITY: Ad-nelly. FOLLOWUP: The patient to follow up with PMD in one week. Azar Liang M.D. DR: MARY ALICE JOB#: [id number] CC:
== END 2016-12-30 17:05 | disposition home health service (06) | DRG 190 ==
LOC: EDBD 12:32 → EMR 13:00 → 2W 13:07 → EDBEDREQ 13:13 → EMR 17:15 → EDBEDREQ 17:24 → 2W 12-27 13:28
PROC: 5A09357 Assistance with Respiratory Ventilation, Less than 24 Consecutive Hours, Continuous Positive Airway Pressure (ICD-10-PCS; principal; 2016-12-23)
DX: J44.1 Chronic obstructive pulmonary disease with (acute) exacerbation (principal); J96.91 Respiratory failure, unspecified with hypoxia; E87.1 Hypo-osmolality and hyponatremia; F32.9 Major depressive disorder, single episode, unspecified; Z87.891 Personal history of nicotine dependence; J40 Bronchitis, not specified as acute or chronic; I10 Essential (primary) hypertension; Z85.3 Personal history of malignant neoplasm of breast; E03.9 Hypothyroidism, unspecified
CPT/HCPCS: 36415; 36600; 71010; 80053; 82550; 82553; 82803; 83880; 84443; 84484; 85007; 85025; 87040; 93005; 94640; 94660; 94664; 94760; J7620